=== PATIENT | male | born 1965 | race Caucasian/White ===

== ENCOUNTER 2018-12-21 23:22 | Emergency (ER) | payer SELFPAY ==
[2018-12-21] MEDS ORDERED: ceFAZolin 2 GM in Premix Bag 1 BAG IV ONE (23:23)
[2018-12-21] MEDS ORDERED: Sodium Chloride 0.9% 1,000 ML IV ONE (23:23)
[2018-12-21] MEDS ORDERED: Diphtheria,Pertussis(Acell),Tetanus Vaccine 0.5 ML Syringe IM ONE (23:23)
[2018-12-21] MEDS ORDERED: Sodium Chloride 0.9% 2.5 ML Syringe FLUSH PRN (23:24)
[2018-12-21] MEDS ORDERED: Sodium Chloride 0.9% 10 ML Syringe FLUSH PRN (23:24)
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
[2018-12-21 23:56] LABS: CHLORIDE,CL 98 mmol/L (98-107); SODIUM,NA 131 mmol/L (136-148)
[2018-12-22] MEDS ORDERED: Iopamidol 755 MG/ML 500 ML Multipack Bottle IVPUSH STA
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
[2018-12-22] MEDS ORDERED: Bacitracin Oint 1 GM U/D Packet TOP ONE (00:45)
== END 2018-12-22 01:10 | disposition home or self-care (01) ==
LOC: EDBD 23:22 → MW.ED 23:22
DX: S31.823A Puncture wound without foreign body of left buttock, initial encounter (principal); Z23 Encounter for immunization; W34.00XA Accidental discharge from unspecified firearms or gun, initial encounter
CPT/HCPCS: 36415; 71045; 72170; 74018; 74177; 80053; 81003; 85025; 85610; 90471; 90715; 93005; 96361; 96365; 99291; G0390; J0690; J7040; Q9967; 99285

== ENCOUNTER 2020-11-25 13:51 | Observation (INO) | payer MEDICAID ==
[2020-11-25] MEDS ORDERED: Sodium Chloride 0.9% 1,000 ML IV SCH (14:30)
[2020-11-25] MEDS ORDERED: Piperacillin/Tazobactam 3.375 GM in Sodium Chloride 0.9% 50 ML IV ONE (14:40)
[2020-11-25] MEDS ORDERED: Vancomycin 1.5 GM in Sodium Chloride 0.9% 500 ML IV SCH (14:45)
[2020-11-25 15:35] LABS: BLOOD UREA NITROGEN,BUN 15 mg/dL (7.0-18.0); CARBON DIOXIDE,CO2 25.1 mmol/L (21.0-32.0); CHLORIDE,CL 103 mmol/L (98-107); GLUCOSE RANDOM 220 mg/dL (74-106); POTASSIUM,K 4.1 mmol/L (3.5-5.1); SODIUM,NA 138 mmol/L (136-148)
--- NOTE | 2020-11-25 15:47 | EDM.PDOC ---
ED HPI GENERAL MEDICAL PROBLEM - General Chief Complaint: Lower Extremity Injury/Pain Stated Complaint: INFECTION IN RIGHT FOOT Time Seen by Provider: 11/25/20 14:05 Source of Information: Reports: Patient History Limitations: Reports: No Limitations - History of Present Illness INITIAL COMMENTS - FREE TEXT/NARRATIVE: HISTORY AND PHYSICAL: History of present illness: Patient is a 55-year-old male presents to the emergency room today with concern of right foot infection over 3 days. 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 Patient states that he began noticing his right foot was in affected 2 to 3 days ago. Patient states that he is unable to assess his foot as he is unable to get it to a level where he can fully analyze it. Patient states that he has not been taking insulin for 1 to 2 months as he has not had a financial/social situation to be able to afford it has been in and out of nursing home according to patient. As he had to have his prior left lower extremity amputated as he did not control infection and had this done at [facility] in [place]. Patient states that they had tried to control the infection with IV antibiotics but after 6 weeks, they decided to amputate his left lower extremity. Patient denies fever, chills, chest pain, shortness of breath, or cough. Denies headache, neck stiff ness, change in vision, syncope, or near syncope. Denies nausea, vomiting, abdominal pain, diarrhea, constipation, or dysuria. Has not noted any blood in urine or stool. Patient has been eating and drinking appropriately. Review of systems: As per history of present illness and below otherwise all systems reviewed and negative. Past medical history: As per history of present illness and as reviewed below otherwise noncontributory. Surgical history: As per history of present illness and as reviewed below otherwise noncontributory. Social history: See social history for further information Family history: As per history of present illness and as reviewed below otherwise noncontributory. Physical exam: General: Patient is alert, oriented, and in no acute distress. Patient laying comfortably on exam table. Vitals stable and reviewed by me. HEENT: Atraumatic, normocephalic, pupils equal and reactive bilaterally, negative for conjunctival pallor or scleral icterus, mucous membranes moist, TMs normal bilaterally, throat clear, neck supple, nontender, trachea midline. No drooling or trismus noted. No meningeal signs. No hot potato voice noted. Lungs: Clear to auscultation, breath sounds equal bilaterally, chest nontender. Heart: S1S2, regular rate and rhythm without overt murmur Abdomen: Soft, nondistended, nontender. Negative for masses or hepatosplenomegaly. Negative for costovertebral tenderness. Pelvis: Stable nontender. Genitourinary: Deferred. Rectal: Deferred. Skin: Intact, warm, dry. No lesions or rashes noted. Extremities: Patient's right foot has a 4 cm x 4 cm circular fleshy area of the lateral ball of his foot with surrounding edema and draining serosanguineous fluid. Patient has poor hygiene of the right foot with various crusting and matted hair stuck to the fleshy area and in between patient's digits. The top patient's right lower extremity has the top layer of skin that is peeling with erythema underlying this. Patient's fourth digit appears to have had prior trauma with the skin peeling and underlying erythema. Patient's entire foot to the ankle is cellulitic on the right. DP/PT intact via doppler of RLE. LLE below the knee amputation. Otherwise, atraumatic, negative for cords or calf pain. Neurovascular unremarkable. Neuro: Awake, alert, oriented. Cranial nerves II through XII unremarkable. Cerebellum unremarkable. Motor and sensory unremarkable throughout. Exam nonfocal. Notes: Bedside glucose 217 I did call and speak to the hospitalist on-call, Dr. Tapia, and thoroughly discussed patient's case. Will admit to observation. Voices understanding and is agreeable to plan of care. Denies any further questions or concerns at this time. Diagnostics: CBC, CMP, Wound culture, blood culture x 2, lactate, Foot CT w cont Therapeutics: NS, Vancomycin, Zosyn Impression: Cellulitis, right lower extremity Medication noncompliance Poorly controlled diabetes Plan: Admit to observation to Dr. Tapia Definitive disposition and diagnosis as appropriate pending reevaluation and review of above. right foot Pain Score (Numeric/FACES): 3 - Related Data Allergies Allergy/AdvReac Type Severity Reaction Status Date / Time No Known Allergies Allergy Verified 11/26/20 06:48 Home Meds: Home Meds . [Unable to Verify Home Med List] 11/25/20 [History] Past Medical History Musculoskeletal History: Reports: Amputation, Other (See Below) Other Musculoskeletal History: left foot amputation Psychiatric History: Reports: Addiction Endocrine/Metabolic History: Reports: Other (See Below) Other Endocrine/Metabolic History: pt. unsure if he is type I or Type II diabetic. Social & Family History - Family History Family Medical History: No Pertinent Family History - Caffeine Use Caffeine Use: Reports: None - Recreational Drug Use Recreational Drug Use: Yes Drug Use in Last 12 Months: Yes Recreational Drug Type: Reports: Methamphetamine Recreational Drug Use Frequency: Not Used In Over 3 Months Review of Systems - Review of Systems Review Of Systems: Comprehensive ROS is negative, except as noted in HPI. ED EXAM, GENERAL - Physical Exam Exam: See Below (see dictation) Course - Vital Signs Last Recorded V/S: Last Vital Signs Temp 98 F 11/26/20 15:54 Pulse 67 11/26/20 15:54 Resp 16 11/26/20 15:54 BP 119/63 11/26/20 15:54 Pulse Ox 96 11/26/20 18:01 - Orders/Labs/Meds Orders: Active Orders 24 hr Category Date Time Status Oxygen Therapy [RC] PRN Care 11/25/20 18:01 Active Up With Assistance [RC] ASDIRECTED Care 11/25/20 18:01 Active VTE/DVT Education [RC] PER UNIT ROUTINE Care 11/25/20 18:01 Active Vital Signs [RC] Q4H Care 11/25/20 18:01 Active Consult to Wound Care Services [CONS] Stat Cons 11/25/20 18:00 Active Acetaminophen [TylenoL] Med 11/25/20 18:01 Active 650 mg PO Q4H PRN Enoxaparin [Lovenox] Med 11/25/20 18:15 Active 40 mg SUBCUT Q24H Ondansetron [Zofran] Med 11/25/20 18:01 Active 4 mg IVPUSH Q4H PRN Pantoprazole [ProTONIX] Med 11/25/20 18:15 Active 40 mg PO DAILY Pharmacy to Dose - Vancomycin Med 11/25/20 18:00 Active 1 dose .XX ASDIRECTED Resuscitation Status Routine Resus Stat 11/25/20 18:01 Ordered Medication Orders Acetaminophen (Tylenol) 650 mg PO Q4H PRN PRN Reason: Pain (Mild 1-3)/fever Dextrose/Water (Dextrose 50% In Water) 50 ml IV ASDIRECTED PRN PRN Reason: Hypoglycemia Enoxaparin Sodium (Lovenox) 40 mg SUBCUT Q24H [facility] Last Admin: 11/26/20 18:25 Dose: 40 mg Documented by: Admin: 11/25/20 18:33 Dose: 40 mg Documented by: KWADWO Glucagon (Glucagen) 1 mg IM ASDIRECTED PRN PRN Reason: Hypoglycemia Sodium Chloride (Normal Saline) 1,000 mls @ 999 mls/hr IV ASDIRECTED [facility] Last Admin: 11/25/20 14:31 Dose: 999 mls/hr Documented by: KWADWO Vancomycin HCl 1.25 gm/ Sodium (Chloride) 250 mls @ 166.667 mls/hr IV Q8H [facility] Last Admin: 11/26/20 15:41 Dose: 166.667 mls/hr Documented by: Infusion: 11/26/20 09:52 Dose: 166.667 mls/hr Documented by: Admin: 11/26/20 08:22 Dose: 166.667 mls/hr Documented by: Infusion: 11/26/20 01:50 Dose: 166.667 mls/hr Documented by: Admin: 11/26/20 00:20 Dose: 166.667 mls/hr Documented by: NRIANJAN Piperacillin Sod/Tazobactam (Sod 3.375 gm/ Sodium Chloride) 50 mls @ 100 mls/hr IV Q6H [facility] Last Admin: 11/26/20 13:49 Dose: 100 mls/hr Documented by: Infusion: 11/26/20 08:08 Dose: 100 mls/hr Documented by: Admin: 11/26/20 07:38 Dose: 100 mls/hr Documented by: Infusion: 11/26/20 02:44 Dose: 100 mls/hr Documented by: Admin: 11/26/20 02:14 Dose: 100 mls/hr Documented by: Infusion: 11/25/20 20:48 Dose: 100 mls/hr Documented by: Admin: 11/25/20 20:18 Dose: 100 mls/hr Documented by: NIRANJAN Insulin Aspart (Novolog) 0 unit SUBCUT TIDAC [facility]; Protocol Last Admin: 11/26/20 18:25 Dose: Not Given Documented by: Admin: 11/26/20 13:02 Dose: 1 unit Documented by: Admin: 11/26/20 07:37 Dose: Not Given Documented by: STEFF Insulin Detemir (Levemir) 10 unit SUBCUT BEDTIME [facility] Last Admin: 11/25/20 20:33 Dose: 10 unit Documented by: NIRANJAN Ondansetron HCl (Zofran) 4 mg IVPUSH Q4H PRN PRN Reason: Nausea Pantoprazole Sodium (Protonix) 40 mg PO DAILY [facility] Last Admin: 11/26/20 08:02 Dose: 40 mg Documented by: Admin: 11/25/20 18:34 Dose: 40 mg Documented by: KWADWO Vancomycin HCl (Pharmacy To Dose - Vancomycin) 1 dose .XX ASDIRECTED [facility] Labs: Laboratory Tests 11/25/20 11/25/20 11/25/20 Range/Units 14:25 14:42 14:42 WBC 9.82 (4.0-11.0) K/uL RBC 4.19 L (4.50-5.90) M/uL Hgb 11.9 L (13.0-17.0) g/dL Hct 36.6 L (38.0-50.0) % MCV 87.4 (80.0-98.0) fL MCH 28.4 (27.0-32.0) pg MCHC 32.5 (31.0-37.0) g/dL RDW Std Deviation 46.0 (28.0-62.0) fl RDW Coeff of Dinesh 15 (11.0-15.0) % Plt Count 395 (150-400) K/uL MPV 9.80 (7.40-12.00) fL Neut % (Auto) 71.2 (48.0-80.0) % Lymph % (Auto) 17.6 (16.0-40.0) % Citrus % (Auto) 7.6 (0.0-15.0) % Eos % (Auto) 3.2 (0.0-7.0) % Baso % (Auto) 0.4 (0.0-1.5) % Neut # (Auto) 7.0 H (1.4-5.7) K/uL Lymph # (Auto) 1.7 (0.6-2.4) K/uL Citrus # (Auto) 0.8 (0.0-0.8) K/uL Eos # (Auto) 0.3 (0.0-0.7) K/uL Baso # (Auto) 0.0 (0.0-0.1) K/uL Nucleated RBC % 0.0 /100WBC Nucleated RBCs # 0 K/uL ESR (0-19) mm/hr Lactate (0.20-2.00) mmol/L Sodium 138 (136-148) mmol/L Potassium 4.1 (3.5-5.1) mmol/L Chloride 103 (98-107) mmol/L Carbon Dioxide 25.1 (21.0-32.0) mmol/L BUN 15 (7.0-18.0) mg/dL Creatinine 1.0 (0.8-1.3) mg/dL Est Cr Clr Drug Dosing 88.90 mL/min Estimated GFR (MDRD) > 60.0 ml/min Glucose 220 H (74-106) mg/dL POC Glucose 217 H (60-110) mg/dL Hemoglobin A1c (4.5 - 6.2) % Calcium 8.2 L (8.5-10.1) mg/dL Total Bilirubin 0.2 (0.2-1.0) mg/dL AST 9 L (15-37) IU/L ALT 22 (14-63) IU/L Alkaline Phosphatase 83 (46-116) U/L C-Reactive Protein (0.00-0.90) mg/dL Total Protein 7.8 (6.4-8.2) g/dL Albumin 2.5 L (3.4-5.0) g/dL Globulin 5.3 H (2.6-4.0) g/dL Albumin/Globulin Ratio 0.5 L (0.9-1.6) Influenza Type A RNA (NEGATIVE) Influenza Type B RNA (NEGATIVE) SARS-CoV-2 RNA (SKYLAR) (NEGATIVE) 11/25/20 11/25/20 11/25/20 Range/Units 14:42 14:42 14:42 WBC (4.0-11.0) K/uL RBC (4.50-5.90) M/uL Hgb (13.0-17.0) g/dL Hct (38.0-50.0) % MCV (80.0-98.0) fL MCH (27.0-32.0) pg MCHC (31.0-37.0) g/dL RDW Std Deviation (28.0-62.0) fl RDW Coeff of Dinesh (11.0-15.0) % Plt Count (150-400) K/uL MPV (7.40-12.00) fL Neut % (Auto) (48.0-80.0) % Lymph % (Auto) (16.0-40.0) % Citrus % (Auto) (0.0-15.0) % Eos % (Auto) (0.0-7.0) % Baso % (Auto) (0.0-1.5) % Neut # (Auto) (1.4-5.7) K/uL Lymph # (Auto) (0.6-2.4) K/uL Citrus # (Auto) (0.0-0.8) K/uL Eos # (Auto) (0.0-0.7) K/uL Baso # (Auto) (0.0-0.1) K/uL Nucleated RBC % /100WBC Nucleated RBCs # K/uL ESR 26 H (0-19) mm/hr Lactate 0.9 (0.20-2.00) mmol/L Sodium (136-148) mmol/L Potassium (3.5-5.1) mmol/L Chloride (98-107) mmol/L Carbon Dioxide (21.0-32.0) mmol/L BUN (7.0-18.0) mg/dL Creatinine (0.8-1.3) mg/dL Est Cr Clr Drug Dosing mL/min Estimated GFR (MDRD) ml/min Glucose (74-106) mg/dL POC Glucose (60-110) mg/dL Hemoglobin A1c (4.5 - 6.2) % Calcium (8.5-10.1) mg/dL Total Bilirubin (0.2-1.0) mg/dL AST (15-37) IU/L ALT (14-63) IU/L Alkaline Phosphatase (46-116) U/L C-Reactive Protein 11.80 H (0.00-0.90) mg/dL Total Protein (6.4-8.2) g/dL Albumin (3.4-5.0) g/dL Globulin (2.6-4.0) g/dL Albumin/Globulin Ratio (0.9-1.6) Influenza Type A RNA (NEGATIVE) Influenza Type B RNA (NEGATIVE) SARS-CoV-2 RNA (SKYLAR) (NEGATIVE) 11/25/20 11/25/20 Range/Units 14:42 17:02 WBC (4.0-11.0) K/uL RBC (4.50-5.90) M/uL Hgb (13.0-17.0) g/dL Hct (38.0-50.0) % MCV (80.0-98.0) fL MCH (27.0-32.0) pg MCHC (31.0-37.0) g/dL RDW Std Deviation (28.0-62.0) fl RDW Coeff of Dinesh (11.0-15.0) % Plt Count (150-400) K/uL MPV (7.40-12.00) fL Neut % (Auto) (48.0-80.0) % Lymph % (Auto) (16.0-40.0) % Citrus % (Auto) (0.0-15.0) % Eos % (Auto) (0.0-7.0) % Baso % (Auto) (0.0-1.5) % Neut # (Auto) (1.4-5.7) K/uL Lymph # (Auto) (0.6-2.4) K/uL Citrus # (Auto) (0.0-0.8) K/uL Eos # (Auto) (0.0-0.7) K/uL Baso # (Auto) (0.0-0.1) K/uL Nucleated RBC % /100WBC Nucleated RBCs # K/uL ESR (0-19) mm/hr Lactate (0.20-2.00) mmol/L Sodium (136-148) mmol/L Potassium (3.5-5.1) mmol/L Chloride (98-107) mmol/L Carbon Dioxide (21.0-32.0) mmol/L BUN (7.0-18.0) mg/dL Creatinine (0.8-1.3) mg/dL Est Cr Clr Drug Dosing mL/min Estimated GFR (MDRD) ml/min Glucose (74-106) mg/dL POC Glucose (60-110) mg/dL Hemoglobin A1c 7.6 H (4.5 - 6.2) % Calcium (8.5-10.1) mg/dL Total Bilirubin (0.2-1.0) mg/dL AST (15-37) IU/L ALT (14-63) IU/L Alkaline Phosphatase (46-116) U/L C-Reactive Protein (0.00-0.90) mg/dL Total Protein (6.4-8.2) g/dL Albumin (3.4-5.0) g/dL Globulin (2.6-4.0) g/dL Albumin/Globulin Ratio (0.9-1.6) Influenza Type A RNA NEGATIVE (NEGATIVE) Influenza Type B RNA NEGATIVE (NEGATIVE) SARS-CoV-2 RNA (SKYLAR) NEGATIVE (NEGATIVE) Meds: Medications Generic Name Dose Route Start Last Admin Trade Name Freq PRN Reason Stop Dose Admin Acetaminophen 650 mg 11/25/20 18:01 Tylenol PO Q4H PRN Pain (Mild 1-3)/fever Dextrose/Water 50 ml 11/25/20 18:03 Dextrose 50% In Water IV ASDIRECTED PRN Hypoglycemia Enoxaparin Sodium 40 mg 11/25/20 18:15 11/26/20 18:25 Lovenox SUBCUT 40 mg Q24H MOUNA Administration Glucagon 1 mg 11/25/20 18:03 Glucagen IM ASDIRECTED PRN Hypoglycemia Sodium Chloride 1,000 mls @ 999 mls/hr 11/25/20 14:30 11/25/20 14:31 Normal Saline IV 999 mls/hr ASDIRECTED MOUNA Administration Vancomycin HCl 1.25 gm/ Sodium 250 mls @ 166.667 mls/hr 11/26/20 00:00 11/26/20 15:41 Chloride IV 166.667 mls/hr Q8H [facility]OUNA Administration Piperacillin Sod/Tazobactam 50 mls @ 100 mls/hr 11/25/20 20:00 11/26/20 13:49 Sod 3.375 gm/ Sodium Chloride IV 100 mls/hr Q6H [facility] Administration Insulin Aspart 0 unit 11/26/20 07:30 11/26/20 18:25 Novolog SUBCUT Not Given TIDAC [facility] Protocol Insulin Detemir 10 unit 11/25/20 21:00 11/25/20 20:33 Levemir SUBCUT 10 unit BEDTIME [facility] Administration Ondansetron HCl 4 mg 11/25/20 18:01 Zofran IVPUSH Q4H PRN Nausea Pantoprazole Sodium 40 mg 11/25/20 18:15 11/26/20 08:02 Protonix PO 40 mg DAILY MOUNA Administration Vancomycin HCl 1 dose 11/25/20 18:00 Pharmacy To Dose - Vancomycin .XX ASDIRECTED [facility] Discontinued Medications Generic Name Dose Route Start Last Admin Trade Name Freq PRN Reason Stop Dose Admin Vancomycin HCl 1.5 gm/ Sodium 500 mls @ 333 mls/hr 11/25/20 14:45 11/25/20 16:06 Chloride IV 333 mls/hr Q24H [facility]OUNA Administration Piperacillin Sod/Tazobactam 50 mls @ 100 mls/hr 11/25/20 14:40 11/25/20 14:51 Sod 3.375 gm/ Sodium Chloride IV 11/25/20 15:09 100 mls/hr ONETIME ONE Administration Piperacillin Sod/Tazobactam 50 mls @ 100 mls/hr 11/25/20 18:00 11/25/20 21:25 Sod 3.375 gm/ Sodium Chloride IV Not Given Q6H [facility] Iopamidol 100 ml 11/25/20 16:01 11/25/20 16:02 Isovue Multipack-370 (76%) IVPUSH 11/25/20 16:02 100 ml ONETIME ONE Administration Departure - Departure Time of Disposition: 19:02 Disposition: Refer to Observation Clinical Impression: Non compliance w medication regimen, Poorly controlled diabetes mellitus Cellulitis Qualifiers: Site of cellulitis: extremity Site of cellulitis of extremity: lower extremity Laterality: right Qualified Code(s): L03.115 - Cellulitis of right lower limb - Discharge Information Sepsis Event Note (ED) - Evaluation Sepsis Screening Result: No Definite Risk
[2020-11-25] MEDS ORDERED: Iopamidol 755 MG/ML 500 ML Multipack Bottle IVPUSH ONE (16:01)
--- NOTE | 2020-11-25 16:26 | CT ---
Indication: Infection of right foot. Diabetic. Technique: CT right foot with 100 cc Isovue 370 IV contrast. Comparison: None. Findings: Bone alignment is normal. No fracture or suspicious bone lesion. No sign of osteomyelitis. Joint spaces are also unremarkable. There are soft tissue ulcers in the plantar surface of the foot. The most prominent ulcer is adjacent to the distal head of the 5th metatarsal. Diffuse severe soft tissue edema present. Vasculature appears patent with blood flow demonstrated throughout the foot. Impression: Diffuse severe swelling with multiple soft tissue ulcers in the plantar surface of the foot. No abscess or osteomyelitis. Please note that all CT scans at this facility use dose modulation, iterative reconstruction, and/or weight-based dosing when appropriate to reduce radiation dose to as low as reasonably achievable. Dictated by Brett Andino MD @ Nov 25 2020 4:15PM Signed by Dr. Brett Andino @ Nov 25 2020 4:24PM
--- NOTE | 2020-11-25 17:20 | PCM.HP.2 ---
H&P History of Present Illness - General Date of Service: 11/25/20 Admit Problem/Dx: Admission Diagnosis/Problem Admission Diagnosis/Problem Cellulitis Source of Information: Patient History Limitations: Reports: No Limitations - History of Present Illness Initial Comments - Free Text/Narative: 55-year-old male presents complaining of right foot infection. He has a PMH of u ncontrolled DM type II, left BKA and substance abuse. He reports that he noticed his right foot becoming more swollen and red after bumping it against something approximately 3-4 days ago. He reports minimal pain. He noticed some yellow- colored drainage from the bottom of his right foot for the past few days as well. He has been walking on it a lot. He had a left BKA done approximately 4 months ago in [place]. He denies having any fevers, chills, sore throat, cough, SOB, chest pain, abdominal pain, nausea, vomiting, diarrhea, blood in stool or blood in his urine. In the ER, POC glucose 220, lactate normal and CBC unremarkable. CT of right foot showed no evidence of osteomyelitis, diffuse severe swelling with multiple soft tissue ulcers in the plantar surface of the foot. Patient given IV NS 1 L bolus, IV vanc and zosyn. He was admitted for further evaluation and treatment. right foot Pain Score (Numeric/FACES): 3 - Related Data Allergies/Adverse Reactions: Allergies Allergy/AdvReac Type Severity Reaction Status Date / Time No Known Allergies Allergy Verified 11/25/20 14:19 Home Medications: Home Meds . [Unable to Verify Home Med List] 11/25/20 [History] Past Medical History Musculoskeletal History: Reports: Amputation, Other (See Below) Other Musculoskeletal History: left foot amputation Psychiatric History: Reports: Addiction Endocrine/Metabolic History: Reports: Other (See Below) Other Endocrine/Metabolic History: pt. unsure if he is type I or Type II diabetic. Social & Family History - Family History Family Medical History: No Pertinent Family History - Caffeine Use Caffeine Use: Reports: None - Recreational Drug Use Recreational Drug Use: Yes Drug Use in Last 12 Months: Yes Recreational Drug Type: Reports: Methamphetamine Recreational Drug Use Frequency: Not Used In Over 3 Months H&P Review of Systems - Review of Systems: Review Of Systems: Comprehensive ROS is negative, except as noted in HPI. Exam - Exam Exam: See Below - Vital Signs Vital Signs: Last Vital Signs Temp 36.5 C 11/25/20 14:16 Pulse 88 11/25/20 14:16 Resp 18 11/25/20 14:16 BP 167/90 H 11/25/20 14:16 Pulse Ox 98 11/25/20 14:16 Weight: 81.193 kg - Exam General: Alert, Oriented, Cooperative, Other (NAD) HEENT: Conjunctiva Clear, EOMI, Hearing Intact, Pupils Equal, Pupils Reactive Neck: Supple, Trachea Midline Lungs: Clear to Auscultation, Normal Respiratory Effort Cardiovascular: Regular Rate, Regular Rhythm GI/Abdominal Exam: Normal Bowel Sounds, Soft, Non-Tender, No Distention Extremities: Other (RLE: 3 cm x 3 cm ulceration on plantar surface of right foot, draining scant amount of serosanguinous fluid with surrounding erythema and edmea. There is a shallow skin abrasion approximately 2 cm x 1 cm on dorsal surface of foot near 4th and 5th digits. 1+ pitting edema and erythema from foot extending proximally to distal leg level. ) Peripheral Pulses: 1+: Posterior Tibial (L), Posterior Tibial (R) Neurological: Cranial Nerves Intact, Strength Equal Bilateral, Normal Speech, Normal Tone Neuro Extensive - Mental Status: Alert, Oriented x3, Normal Mood/Affect Psychiatric: Alert, Normal Affect, Normal Mood - Patient Data Lab Results Last 24 hrs: Laboratory Results - last 24 hr 11/25/20 11/25/20 11/25/20 Range/Units 14:25 14:42 14:42 WBC 9.82 (4.0-11.0) K/uL RBC 4.19 L (4.50-5.90) M/uL Hgb 11.9 L (13.0-17.0) g/dL Hct 36.6 L (38.0-50.0) % MCV 87.4 (80.0-98.0) fL MCH 28.4 (27.0-32.0) pg MCHC 32.5 (31.0-37.0) g/dL RDW Std Deviation 46.0 (28.0-62.0) fl RDW Coeff of Dinesh 15 (11.0-15.0) % Plt Count 395 (150-400) K/uL MPV 9.80 (7.40-12.00) fL Neut % (Auto) 71.2 (48.0-80.0) % Lymph % (Auto) 17.6 (16.0-40.0) % [place] % (Auto) 7.6 (0.0-15.0) % Eos % (Auto) 3.2 (0.0-7.0) % Baso % (Auto) 0.4 (0.0-1.5) % Neut # (Auto) 7.0 H (1.4-5.7) K/uL Lymph # (Auto) 1.7 (0.6-2.4) K/uL [place] # (Auto) 0.8 (0.0-0.8) K/uL Eos # (Auto) 0.3 (0.0-0.7) K/uL Baso # (Auto) 0.0 (0.0-0.1) K/uL Nucleated RBC % 0.0 /100WBC Nucleated RBCs # 0 K/uL Lactate (0.20-2.00) mmol/L Sodium 138 (136-148) mmol/L Potassium 4.1 (3.5-5.1) mmol/L Chloride 103 (98-107) mmol/L Carbon Dioxide 25.1 (21.0-32.0) mmol/L BUN 15 (7.0-18.0) mg/dL Creatinine 1.0 (0.8-1.3) mg/dL Est Cr Clr Drug Dosing 88.90 mL/min Estimated GFR (MDRD) > 60.0 ml/min Glucose 220 H (74-106) mg/dL POC Glucose 217 H (60-110) mg/dL Calcium 8.2 L (8.5-10.1) mg/dL Total Bilirubin 0.2 (0.2-1.0) mg/dL AST 9 L (15-37) IU/L ALT 22 (14-63) IU/L Alkaline Phosphatase 83 (46-116) U/L Total Protein 7.8 (6.4-8.2) g/dL Albumin 2.5 L (3.4-5.0) g/dL Globulin 5.3 H (2.6-4.0) g/dL Albumin/Globulin Ratio 0.5 L (0.9-1.6) 11/25/20 Range/Units 14:42 WBC (4.0-11.0) K/uL RBC (4.50-5.90) M/uL Hgb (13.0-17.0) g/dL Hct (38.0-50.0) % MCV (80.0-98.0) fL MCH (27.0-32.0) pg MCHC (31.0-37.0) g/dL RDW Std Deviation (28.0-62.0) fl RDW Coeff of Dinesh (11.0-15.0) % Plt Count (150-400) K/uL MPV (7.40-12.00) fL Neut % (Auto) (48.0-80.0) % Lymph % (Auto) (16.0-40.0) % [place] % (Auto) (0.0-15.0) % Eos % (Auto) (0.0-7.0) % Baso % (Auto) (0.0-1.5) % Neut # (Auto) (1.4-5.7) K/uL Lymph # (Auto) (0.6-2.4) K/uL [place] # (Auto) (0.0-0.8) K/uL Eos # (Auto) (0.0-0.7) K/uL Baso # (Auto) (0.0-0.1) K/uL Nucleated RBC % /100WBC Nucleated RBCs # K/uL Lactate 0.9 (0.20-2.00) mmol/L Sodium (136-148) mmol/L Potassium (3.5-5.1) mmol/L Chloride (98-107) mmol/L Carbon Dioxide (21.0-32.0) mmol/L BUN (7.0-18.0) mg/dL Creatinine (0.8-1.3) mg/dL Est Cr Clr Drug Dosing mL/min Estimated GFR (MDRD) ml/min Glucose (74-106) mg/dL POC Glucose (60-110) mg/dL Calcium (8.5-10.1) mg/dL Total Bilirubin (0.2-1.0) mg/dL AST (15-37) IU/L ALT (14-63) IU/L Alkaline Phosphatase (46-116) U/L Total Protein (6.4-8.2) g/dL Albumin (3.4-5.0) g/dL Globulin (2.6-4.0) g/dL Albumin/Globulin Ratio (0.9-1.6) Result Diagrams: 11/25/20 14:42 11/25/20 14:42 [facility]argas Results Last 24 hrs: Microbiology 11/25/20 14:42 Anaerobic Blood Culture - Final Blood - Venous Sepsis Event Note - Evaluation Sepsis Screening Result: No Definite Risk - Focused Exam Vital Signs: Vital Signs Temp Pulse Resp BP Pulse Ox 11/25/20 14:16 36.5 C 88 18 167/90 H 98 - Problem List (1) Diabetic foot ulcer SNOMED Code(s): 833536825 ICD Code: E11.621 - TYPE 2 DIABETES MELLITUS WITH FOOT ULCER; L97.509 - NON- PRESSURE CHRONIC ULCER OTH PRT UNSP FOOT W UNSP SEVERITY Status: Acute Current Visit: Yes Problem List Initiated/Reviewed/Updated: Yes Orders Last 24hrs: Active Orders 24 hr Category Date Time Status Admission Status [Patient Status] [ADT] Stat ADT 11/25/20 16:51 Active COVID-19/FLU A+B [MOLEC] Stat Lab 11/25/20 17:02 Received CULTURE BLOOD [BC] Stat Lab 11/25/20 14:42 Results CULTURE BLOOD [BC] Stat Lab 11/25/20 15:00 Received CULTURE WOUND [RM] Stat Lab 11/25/20 14:23 Received Sodium Chloride 0.9% [Normal Saline] 1,000 ml Med 11/25/20 14:30 Active IV ASDIRECTED Vancomycin 1.5 gm Med 11/25/20 14:45 Active Sodium Chloride 0.9% [Normal Saline] 500 ml IV Q24H Blood Culture x2 Reflex Set [OM.PC] Stat Oth 11/25/20 14:37 Ordered Medication Orders Sodium Chloride (Normal Saline) 1,000 mls @ 999 mls/hr IV ASDIRECTED [facility] Last Admin: 11/25/20 14:31 Dose: 999 mls/hr Documented by: KWADWO Vancomycin HCl 1.5 gm/ Sodium (Chloride) 500 mls @ 333 mls/hr IV Q24H [facility] Last Admin: 11/25/20 16:06 Dose: 333 mls/hr Documented by: KWADWO Assessment/Plan Comment:: Assessment and Plan: 1. Infected diabetic foot ulcers of RLE: - Admit to med/surg. Will treat with IV vancomycin and zosyn. Obtain wound and blood cultures. Will check ESR and CRP. Consult wound care. - CT of right foot showed diffuse severe swelling with multiple soft tissue ulcers in the plantar surface of the foot and no evidence of osteomyelitis. 2. Diabetes mellitus type 2: - Check HgbA1c. Start ADA diet, SSI and accuchecks TIDAC. Levemir 10 units at bedtime. 3. DVT prophylaxis: - Lovenox 40 mg subcut qd.
[2020-11-25 17:47] LABS: CORONAVIRUS COVID-19 NAA NEGATIVE (NEGATIVE); INFLUENZA A NAA NEGATIVE (NEGATIVE); INFLUENZA B NAA NEGATIVE (NEGATIVE)
[2020-11-25] MEDS ORDERED: Piperacillin/Tazobactam 3.375 GM in Sodium Chloride 0.9% 50 ML IV SCH (18:00)
[2020-11-25] MEDS ORDERED: Ondansetron 4 MG/2 ML SDV IVPUSH PRN (18:01)
[2020-11-25] MEDS ORDERED: Acetaminophen 325 MG Tab PO PRN (18:01)
[2020-11-25] MEDS ORDERED: Glucagon,Human Recombinant 1 MG Vial IM PRN (18:03)
[2020-11-25] MEDS ORDERED: 50% Dextrose in Water 50 ML Syringe IV PRN (18:03)
[2020-11-25] MEDS: Enoxaparin 40 MG/0.4 ML Syringe SUBCUT SCH (18:33)
[2020-11-25] MEDS: Pantoprazole 40 MG Tab.CR PO SCH (18:34)
[2020-11-25 18:56] LABS: HEMOGLOBIN A1C 7.6 %
[2020-11-25] MEDS: Piperacillin/Tazobactam 3.375 GM in Sodium Chloride 0.9% 50 ML IV SCH (20:18)
[2020-11-25] MEDS: Insulin Detemir 100 Units/ML 3 ML Pen SUBCUT SCH (20:33)
[2020-11-26] MEDS: Piperacillin/Tazobactam 3.375 GM in Sodium Chloride 0.9% 50 ML IV SCH ×4 (02:14→19:59)
[2020-11-26 07:14] LABS: BLOOD UREA NITROGEN,BUN 11 mg/dL (7.0-18.0); CARBON DIOXIDE,CO2 25.4 mmol/L (21.0-32.0); CHLORIDE,CL 103 mmol/L (98-107); GLUCOSE RANDOM 117 mg/dL (74-106); POTASSIUM,K 3.9 mmol/L (3.5-5.1); SODIUM,NA 137 mmol/L (136-148)
[2020-11-26] MEDS: Insulin Aspart 100 Units/ML 3 ML Pen SUBCUT SCH ×3 (07:37→18:25)
[2020-11-26] MEDS: Pantoprazole 40 MG Tab.CR PO SCH (08:02)
--- NOTE | 2020-11-26 11:31 | PCM.PN ---
- General Info Date of Service: 11/26/20 Admission Dx/Problem (Free Text): Admission Diagnosis/Problem Admission Diagnosis/Problem Cellulitis Subjective Update: seen at bedside, no acute distress, Functional Status: Reports: Tolerating Diet - Review of Systems General: Denies: Fever, Weakness Pulmonary: Denies: Shortness of Breath, Pleuritic Chest Pain Cardiovascular: Denies: Chest Pain, Palpitations Gastrointestinal: Denies: Abdominal Pain, Constipation, Decreased Appetite Genitourinary: Denies: Dysuria, Frequency, Burning Musculoskeletal: Reports: Leg Pain, Foot Pain. Denies: Neck Pain, Shoulder Pain Skin: Denies: Cyanosis, Jaundice Neurological: Denies: Confusion, Dizziness - Patient Data Vitals - Most Recent: Last Vital Signs Temp 36.6 C 11/26/20 07:36 Pulse 70 11/26/20 07:36 Resp 18 11/26/20 07:36 BP 137/78 11/26/20 07:36 Pulse Ox 95 11/26/20 07:36 Weight - Most Recent: 89.902 kg I&O - Last 24 Hours: Intake & Output 11/25/20 11/26/20 11/26/20 22:59 06:59 14:59 Intake Total 1250 Output Total 650 Balance 600 Lab Results Last 24 Hours: Laboratory Results - last 24 hr 11/25/20 11/25/20 11/25/20 Range/Units 14:25 14:42 14:42 WBC 9.82 (4.0-11.0) K/uL RBC 4.19 L (4.50-5.90) M/uL Hgb 11.9 L (13.0-17.0) g/dL Hct 36.6 L (38.0-50.0) % MCV 87.4 (80.0-98.0) fL MCH 28.4 (27.0-32.0) pg MCHC 32.5 (31.0-37.0) g/dL RDW Std Deviation 46.0 (28.0-62.0) fl RDW Coeff of Dinesh 15 (11.0-15.0) % Plt Count 395 (150-400) K/uL MPV 9.80 (7.40-12.00) fL Neut % (Auto) 71.2 (48.0-80.0) % Lymph % (Auto) 17.6 (16.0-40.0) % [place] % (Auto) 7.6 (0.0-15.0) % Eos % (Auto) 3.2 (0.0-7.0) % Baso % (Auto) 0.4 (0.0-1.5) % Neut # (Auto) 7.0 H (1.4-5.7) K/uL Lymph # (Auto) 1.7 (0.6-2.4) K/uL [place] # (Auto) 0.8 (0.0-0.8) K/uL Eos # (Auto) 0.3 (0.0-0.7) K/uL Baso # (Auto) 0.0 (0.0-0.1) K/uL Nucleated RBC % 0.0 /100WBC Nucleated RBCs # 0 K/uL ESR (0-19) mm/hr Lactate (0.20-2.00) mmol/L Sodium 138 (136-148) mmol/L Potassium 4.1 (3.5-5.1) mmol/L Chloride 103 (98-107) mmol/L Carbon Dioxide 25.1 (21.0-32.0) mmol/L BUN 15 (7.0-18.0) mg/dL Creatinine 1.0 (0.8-1.3) mg/dL Est Cr Clr Drug Dosing 88.90 mL/min Estimated GFR (MDRD) > 60.0 ml/min Glucose 220 H (74-106) mg/dL POC Glucose 217 H (60-110) mg/dL Hemoglobin A1c (4.5 - 6.2) % Calcium 8.2 L (8.5-10.1) mg/dL Total Bilirubin 0.2 (0.2-1.0) mg/dL AST 9 L (15-37) IU/L ALT 22 (14-63) IU/L Alkaline Phosphatase 83 (46-116) U/L C-Reactive Protein (0.00-0.90) mg/dL Total Protein 7.8 (6.4-8.2) g/dL Albumin 2.5 L (3.4-5.0) g/dL Globulin 5.3 H (2.6-4.0) g/dL Albumin/Globulin Ratio 0.5 L (0.9-1.6) Influenza Type A RNA (NEGATIVE) Influenza Type B RNA (NEGATIVE) SARS-CoV-2 RNA (SKYLAR) (NEGATIVE) 11/25/20 11/25/20 11/25/20 Range/Units 14:42 14:42 14:42 WBC (4.0-11.0) K/uL RBC (4.50-5.90) M/uL Hgb (13.0-17.0) g/dL Hct (38.0-50.0) % MCV (80.0-98.0) fL MCH (27.0-32.0) pg MCHC (31.0-37.0) g/dL RDW Std Deviation (28.0-62.0) fl RDW Coeff of Dinesh (11.0-15.0) % Plt Count (150-400) K/uL MPV (7.40-12.00) fL Neut % (Auto) (48.0-80.0) % Lymph % (Auto) (16.0-40.0) % [place] % (Auto) (0.0-15.0) % Eos % (Auto) (0.0-7.0) % Baso % (Auto) (0.0-1.5) % Neut # (Auto) (1.4-5.7) K/uL Lymph # (Auto) (0.6-2.4) K/uL [place] # (Auto) (0.0-0.8) K/uL Eos # (Auto) (0.0-0.7) K/uL Baso # (Auto) (0.0-0.1) K/uL Nucleated RBC % /100WBC Nucleated RBCs # K/uL ESR 26 H (0-19) mm/hr Lactate 0.9 (0.20-2.00) mmol/L Sodium (136-148) mmol/L Potassium (3.5-5.1) mmol/L Chloride (98-107) mmol/L Carbon Dioxide (21.0-32.0) mmol/L BUN (7.0-18.0) mg/dL Creatinine (0.8-1.3) mg/dL Est Cr Clr Drug Dosing mL/min Estimated GFR (MDRD) ml/min Glucose (74-106) mg/dL POC Glucose (60-110) mg/dL Hemoglobin A1c (4.5 - 6.2) % Calcium (8.5-10.1) mg/dL Total Bilirubin (0.2-1.0) mg/dL AST (15-37) IU/L ALT (14-63) IU/L Alkaline Phosphatase (46-116) U/L C-Reactive Protein 11.80 H (0.00-0.90) mg/dL Total Protein (6.4-8.2) g/dL Albumin (3.4-5.0) g/dL Globulin (2.6-4.0) g/dL Albumin/Globulin Ratio (0.9-1.6) Influenza Type A RNA (NEGATIVE) Influenza Type B RNA (NEGATIVE) SARS-CoV-2 RNA (SK[place]AR) (NEGATIVE) 11/25/20 11/25/20 11/25/20 Range/Units 14:42 17:02 20:31 WBC (4.0-11.0) K/uL RBC (4.50-5.90) M/uL Hgb (13.0-17.0) g/dL Hct (38.0-50.0) % MCV (80.0-98.0) fL MCH (27.0-32.0) pg MCHC (31.0-37.0) g/dL RDW Std Deviation (28.0-62.0) fl RDW Coeff of Dinesh (11.0-15.0) % Plt Count (150-400) K/uL MPV (7.40-12.00) fL Neut % (Auto) (48.0-80.0) % Lymph % (Auto) (16.0-40.0) % [place] % (Auto) (0.0-15.0) % Eos % (Auto) (0.0-7.0) % Baso % (Auto) (0.0-1.5) % Neut # (Auto) (1.4-5.7) K/uL Lymph # (Auto) (0.6-2.4) K/uL [place] # (Auto) (0.0-0.8) K/uL Eos # (Auto) (0.0-0.7) K/uL Baso # (Auto) (0.0-0.1) K/uL Nucleated RBC % /100WBC Nucleated RBCs # K/uL ESR (0-19) mm/hr Lactate (0.20-2.00) mmol/L Sodium (136-148) mmol/L Potassium (3.5-5.1) mmol/L Chloride (98-107) mmol/L Carbon Dioxide (21.0-32.0) mmol/L BUN (7.0-18.0) mg/dL Creatinine (0.8-1.3) mg/dL Est Cr Clr Drug Dosing mL/min Estimated GFR (MDRD) ml/min Glucose (74-106) mg/dL POC Glucose 195 H (60-110) mg/dL Hemoglobin A1c 7.6 H (4.5 - 6.2) % Calcium (8.5-10.1) mg/dL Total Bilirubin (0.2-1.0) mg/dL AST (15-37) IU/L ALT (14-63) IU/L Alkaline Phosphatase (46-116) U/L C-Reactive Protein (0.00-0.90) mg/dL Total Protein (6.4-8.2) g/dL Albumin (3.4-5.0) g/dL Globulin (2.6-4.0) g/dL Albumin/Globulin Ratio (0.9-1.6) Influenza Type A RNA NEGATIVE (NEGATIVE) Influenza Type B RNA NEGATIVE (NEGATIVE) SARS-CoV-2 RNA (SKYLAR) NEGATIVE (NEGATIVE) 11/26/20 11/26/20 11/26/20 Range/Units 06:30 06:30 06:58 WBC 9.68 (4.0-11.0) K/uL RBC 3.95 L (4.50-5.90) M/uL Hgb 11.1 L (13.0-17.0) g/dL Hct 34.0 L (38.0-50.0) % MCV 86.1 (80.0-98.0) fL MCH 28.1 (27.0-32.0) pg MCHC 32.6 (31.0-37.0) g/dL RDW Std Deviation 45.4 (28.0-62.0) fl RDW Coeff of Dinesh 14 (11.0-15.0) % Plt Count 367 (150-400) K/uL MPV 9.30 (7.40-12.00) fL Neut % (Auto) 73.6 (48.0-80.0) % Lymph % (Auto) 13.5 L (16.0-40.0) % [place] % (Auto) 8.1 (0.0-15.0) % Eos % (Auto) 4.3 (0.0-7.0) % Baso % (Auto) 0.5 (0.0-1.5) % Neut # (Auto) 7.1 H (1.4-5.7) K/uL Lymph # (Auto) 1.3 (0.6-2.4) K/uL [place] # (Auto) 0.8 (0.0-0.8) K/uL Eos # (Auto) 0.4 (0.0-0.7) K/uL Baso # (Auto) 0.1 (0.0-0.1) K/uL Nucleated RBC % 0.0 /100WBC Nucleated RBCs # 0 K/uL ESR (0-19) mm/hr Lactate (0.20-2.00) mmol/L Sodium 137 (136-148) mmol/L Potassium 3.9 (3.5-5.1) mmol/L Chloride 103 (98-107) mmol/L Carbon Dioxide 25.4 (21.0-32.0) mmol/L BUN 11 (7.0-18.0) mg/dL Creatinine 1.0 (0.8-1.3) mg/dL Est Cr Clr Drug Dosing 88.90 mL/min Estimated GFR (MDRD) > 60.0 ml/min Glucose 117 H (74-106) mg/dL POC Glucose 113 H (60-110) mg/dL Hemoglobin A1c (4.5 - 6.2) % Calcium 8.2 L (8.5-10.1) mg/dL Total Bilirubin 0.3 (0.2-1.0) mg/dL AST 11 L (15-37) IU/L ALT 20 (14-63) IU/L Alkaline Phosphatase 70 (46-116) U/L C-Reactive Protein (0.00-0.90) mg/dL Total Protein 7.2 (6.4-8.2) g/dL Albumin 2.2 L (3.4-5.0) g/dL Globulin 5.0 H (2.6-4.0) g/dL Albumin/Globulin Ratio 0.4 L (0.9-1.6) Influenza Type A RNA (NEGATIVE) Influenza Type B RNA (NEGATIVE) SARS-CoV-2 RNA (SKYLAR) (NEGATIVE) [facility]as Results Last 24 Hours: Microbiology 11/25/20 14:42 Anaerobic Blood Culture - Final Blood - Venous Med Orders - Current: Current Medications Acetaminophen (Tylenol) 650 mg PO Q4H PRN PRN Reason: Pain (Mild 1-3)/fever Dextrose/Water (Dextrose 50% In Water) 50 ml IV ASDIRECTED PRN PRN Reason: Hypoglycemia Enoxaparin Sodium (Lovenox) 40 mg SUBCUT Q24H [facility] Last Admin: 11/25/20 18:33 Dose: 40 mg Documented by: Glucagon (Glucagen) 1 mg IM ASDIRECTED PRN PRN Reason: Hypoglycemia Sodium Chloride (Normal Saline) 1,000 mls @ 999 mls/hr IV ASDIRECTED [facility] Last Admin: 11/25/20 14:31 Dose: 999 mls/hr Documented by: Vancomycin HCl 1.25 gm/ Sodium (Chloride) 250 mls @ 166.667 mls/hr IV Q8H [facility] Last Admin: 11/26/20 08:22 Dose: 166.667 mls/hr Documented by: Piperacillin Sod/Tazobactam (Sod 3.375 gm/ Sodium Chloride) 50 mls @ 100 mls/hr IV Q6H [facility] Last Admin: 11/26/20 07:38 Dose: 100 mls/hr Documented by: Insulin Aspart (Novolog) 0 unit SUBCUT TIDAC [facility]; Protocol Last Admin: 11/26/20 07:37 Dose: Not Given Documented by: Insulin Detemir (Levemir) 10 unit SUBCUT BEDTIME [facility] Last Admin: 11/25/20 20:33 Dose: 10 unit Documented by: Ondansetron HCl (Zofran) 4 mg IVPUSH Q4H PRN PRN Reason: Nausea Pantoprazole Sodium (Protonix) 40 mg PO DAILY [facility] Last Admin: 11/26/20 08:02 Dose: 40 mg Documented by: Vancomycin HCl (Pharmacy To Dose - Vancomycin) 1 dose .XX ASDIRECTED [facility] Discontinued Medications Vancomycin HCl 1.5 gm/ Sodium (Chloride) 500 mls @ 333 mls/hr IV Q24H [facility] Last Admin: 11/25/20 16:06 Dose: 333 mls/hr Documented by: Piperacillin Sod/Tazobactam (Sod 3.375 gm/ Sodium Chloride) 50 mls @ 100 mls/hr IV ONETIME ONE Stop: 11/25/20 15:09 Last Admin: 11/25/20 14:51 Dose: 100 mls/hr Documented by: Piperacillin Sod/Tazobactam (Sod 3.375 gm/ Sodium Chloride) 50 mls @ 100 mls/hr IV Q6H [facility] Last Admin: 11/25/20 21:25 Dose: Not Given Documented by: Iopamidol (Isovue Multipack-370 (76%)) 100 ml IVPUSH ONETIME ONE Stop: 11/25/20 16:02 Last Admin: 11/25/20 16:02 Dose: 100 ml Documented by: - Exam General: Alert, Oriented Lungs: Clear to Auscultation, Normal Respiratory Effort Cardiovascular: Regular Rate, Regular Rhythm GI/Abdominal Exam: Normal Bowel Sounds, Soft, Non-Tender Extremities: Normal Range of Motion, Leg Pain, Redness, Other (3x3 cm ulcer with purulent drainage present in the plantar aspect of the right foot, ). No: Joint Swelling, Arm Pain Skin: Warm, Dry Wound/Incisions: Drainage Sepsis Event Note - Evaluation Sepsis Screening Result: No Definite Risk - Focused Exam Vital Signs: Vital Signs Temp Pulse Resp BP Pulse Ox 11/26/20 07:36 36.6 C 70 18 137/78 95 11/26/20 04:00 37.1 C 81 18 151/78 H 95 11/26/20 00:00 36.7 C 82 18 152/83 H 95 - Problem List & Annotations (1) Diabetes mellitus SNOMED Code(s): 56428619 Code(s): E11.9 - TYPE 2 DIABETES MELLITUS WITHOUT COMPLICATIONS Status: Acute Current Visit: Yes (2) Diabetic foot ulcer SNOMED Code(s): 363671482 Code(s): E11.621 - TYPE 2 DIABETES MELLITUS WITH FOOT ULCER; L97.509 - NON- PRESSURE CHRONIC ULCER OTH PRT UNSP FOOT W UNSP SEVERITY Status: Acute Current Visit: Yes (3) Hx of BKA SNOMED Code(s): 339725667, 755489041 Code(s): Z89.519 - ACQUIRED ABSENCE OF UNSPECIFIED LEG BELOW KNEE Status: Acute Current Visit: Yes - Problem List Review Problem List Initiated/Reviewed/Updated: Yes - Plan Plan:: Assessment and Plan: 1. Infected diabetic foot ulcers of RLE: - cont IV vancomycin and zosyn. Obtain wound and blood cultures. Consult wound care. - CT of right foot showed diffuse severe swelling with multiple soft tissue ulcers in the plantar surface of the foot and no evidence of osteomyelitis. 2. 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 Levemir 10 units at bedtime. 3. DVT prophylaxis: - Lovenox 40 mg subcut qd.
[2020-11-26] MEDS: Enoxaparin 40 MG/0.4 ML Syringe SUBCUT SCH (18:25)
[2020-11-26] MEDS: Insulin Detemir 100 Units/ML 3 ML Pen SUBCUT SCH (20:08)
[2020-11-27] MEDS: Piperacillin/Tazobactam 3.375 GM in Sodium Chloride 0.9% 50 ML IV SCH ×4 (01:36→20:25)
[2020-11-27 07:22] LABS: BLOOD UREA NITROGEN,BUN 11 mg/dL (7.0-18.0); CARBON DIOXIDE,CO2 27.6 mmol/L (21.0-32.0); CHLORIDE,CL 104 mmol/L (98-107); GLUCOSE RANDOM 136 mg/dL (74-106); SODIUM,NA 141 mmol/L (136-148)
--- NOTE | 2020-11-27 07:41 | PCM.PN ---
<Vince Carrasquillo - Last Filed: 11/27/20 12:06> - General Info Date of Service: 11/27/20 Subjective Update: No complaints at bedside this AM. Tolerating oral diet. Denies any fevers, chills, SOB, chest pain, nausea or vomiting. - Patient Data Vitals - Most Recent: Last Vital Signs Temp 36.9 C 11/27/20 04:00 Pulse 70 11/27/20 04:00 Resp 16 11/27/20 04:00 BP 153/89 H 11/27/20 04:00 Pulse Ox 95 11/27/20 04:00 Weight - Most Recent: 89.902 kg I&O - Last 24 Hours: Intake & Output 11/26/20 11/27/20 11/27/20 22:59 06:59 14:59 Intake Total 350 720 Output Total 0 1325 Balance 350 -605 Lab Results Last 24 Hours: Laboratory Results - last 24 hr 11/26/20 11/26/20 11/26/20 Range/Units 12:36 18:23 20:06 WBC (4.0-11.0) K/uL RBC (4.50-5.90) M/uL Hgb (13.0-17.0) g/dL Hct (38.0-50.0) % MCV (80.0-98.0) fL MCH (27.0-32.0) pg MCHC (31.0-37.0) g/dL RDW Std Deviation (28.0-62.0) fl RDW Coeff of Dinesh (11.0-15.0) % Plt Count (150-400) K/uL MPV (7.40-12.00) fL Neut % (Auto) (48.0-80.0) % Lymph % (Auto) (16.0-40.0) % [place] % (Auto) (0.0-15.0) % Eos % (Auto) (0.0-7.0) % Baso % (Auto) (0.0-1.5) % Neut # (Auto) (1.4-5.7) K/uL Lymph # (Auto) (0.6-2.4) K/uL [place] # (Auto) (0.0-0.8) K/uL Eos # (Auto) (0.0-0.7) K/uL Baso # (Auto) (0.0-0.1) K/uL Nucleated RBC % /100WBC Nucleated RBCs # K/uL Sodium (136-148) mmol/L Potassium (3.5-5.1) mmol/L Chloride (98-107) mmol/L Carbon Dioxide (21.0-32.0) mmol/L BUN (7.0-18.0) mg/dL Creatinine (0.8-1.3) mg/dL Est Cr Clr Drug Dosing mL/min Estimated GFR (MDRD) ml/min Glucose (74-106) mg/dL POC Glucose 166 H 147 H 183 H (60-110) mg/dL Calcium (8.5-10.1) mg/dL Phosphorus (2.6-4.7) mg/dL Magnesium (1.8-2.4) mg/dL Vancomycin Trough (5.0-10.0) ug/mL 11/27/20 11/27/20 11/27/20 Range/Units 06:54 06:54 06:54 WBC 7.83 (4.0-11.0) K/uL RBC 4.11 L (4.50-5.90) M/uL Hgb 11.5 L (13.0-17.0) g/dL Hct 35.4 L (38.0-50.0) % MCV 86.1 (80.0-98.0) fL MCH 28.0 (27.0-32.0) pg MCHC 32.5 (31.0-37.0) g/dL RDW Std Deviation 45.4 (28.0-62.0) fl RDW Coeff of Dinesh 14 (11.0-15.0) % Plt Count 384 (150-400) K/uL MPV 9.10 (7.40-12.00) fL Neut % (Auto) 71.3 (48.0-80.0) % Lymph % (Auto) 14.9 L (16.0-40.0) % [place] % (Auto) 9.1 (0.0-15.0) % Eos % (Auto) 4.1 (0.0-7.0) % Baso % (Auto) 0.6 (0.0-1.5) % Neut # (Auto) 5.6 (1.4-5.7) K/uL Lymph # (Auto) 1.2 (0.6-2.4) K/uL [place] # (Auto) 0.7 (0.0-0.8) K/uL Eos # (Auto) 0.3 (0.0-0.7) K/uL Baso # (Auto) 0.1 (0.0-0.1) K/uL Nucleated RBC % 0.0 /100WBC Nucleated RBCs # 0 K/uL Sodium 141 (136-148) mmol/L Potassium 4.0 (3.5-5.1) mmol/L Chloride 104 (98-107) mmol/L Carbon Dioxide 27.6 (21.0-32.0) mmol/L BUN 11 (7.0-18.0) mg/dL Creatinine 1.0 (0.8-1.3) mg/dL Est Cr Clr Drug Dosing 88.90 mL/min Estimated GFR (MDRD) > 60.0 ml/min Glucose 136 H (74-106) mg/dL POC Glucose (60-110) mg/dL Calcium 8.4 L (8.5-10.1) mg/dL Phosphorus 4.0 (2.6-4.7) mg/dL Magnesium 2.2 (1.8-2.4) mg/dL Vancomycin Trough 33.0 H (5.0-10.0) ug/mL [facility]argas Results Last 24 Hours: Microbiology 11/25/20 15:00 Aerobic Blood Culture - Preliminary Blood - Venous - Lab Draw NO GROWTH AFTER 1 DAY Anaerobic Blood Culture - Preliminary NO GROWTH AFTER 1 DAY 11/25/20 14:42 Aerobic Blood Culture - Preliminary Blood - Venous NO GROWTH AFTER 1 DAY Anaerobic Blood Culture - Final Med Orders - Current: Current Medications Acetaminophen (Tylenol) 650 mg PO Q4H PRN PRN Reason: Pain (Mild 1-3)/fever Dextrose/Water (Dextrose 50% In Water) 50 ml IV ASDIRECTED PRN PRN Reason: Hypoglycemia Enoxaparin Sodium (Lovenox) 40 mg SUBCUT Q24H [facility] Last Admin: 11/26/20 18:25 Dose: 40 mg Documented by: Glucagon (Glucagen) 1 mg IM ASDIRECTED PRN PRN Reason: Hypoglycemia Sodium Chloride (Normal Saline) 1,000 mls @ 999 mls/hr IV ASDIRECTED [facility] Last Admin: 11/25/20 14:31 Dose: 999 mls/hr Documented by: Vancomycin HCl 1.25 gm/ Sodium (Chloride) 250 mls @ 166.667 mls/hr IV Q8H [facility] Last Admin: 11/26/20 23:42 Dose: 166.667 mls/hr Documented by: Piperacillin Sod/Tazobactam (Sod 3.375 gm/ Sodium Chloride) 50 mls @ 100 mls/hr IV Q6H [facility] Last Admin: 11/27/20 01:36 Dose: 100 mls/hr Documented by: Insulin Aspart (Novolog) 0 unit SUBCUT TIDAC [facility]; Protocol Last Admin: 11/26/20 18:25 Dose: Not Given Documented by: Insulin Detemir (Levemir) 10 unit SUBCUT BEDTIME [facility] Last Admin: 11/26/20 20:08 Dose: 10 unit Documented by: Ondansetron HCl (Zofran) 4 mg IVPUSH Q4H PRN PRN Reason: Nausea Pantoprazole Sodium (Protonix) 40 mg PO DAILY [facility] Last Admin: 11/26/20 08:02 Dose: 40 mg Documented by: Vancomycin HCl (Pharmacy To Dose - Vancomycin) 1 dose .XX ASDIRECTED [facility] Discontinued Medications Vancomycin HCl 1.5 gm/ Sodium (Chloride) 500 mls @ 333 mls/hr IV Q24H [facility] Last Admin: 11/25/20 16:06 Dose: 333 mls/hr Documented by: Piperacillin Sod/Tazobactam (Sod 3.375 gm/ Sodium Chloride) 50 mls @ 100 mls/hr IV ONETIME ONE Stop: 11/25/20 15:09 Last Admin: 11/25/20 14:51 Dose: 100 mls/hr Documented by: Piperacillin Sod/Tazobactam (Sod 3.375 gm/ Sodium Chloride) 50 mls @ 100 mls/hr IV Q6H [facility] Last Admin: 11/25/20 21:25 Dose: Not Given Documented by: Iopamidol (Isovue Multipack-370 (76%)) 100 ml IVPUSH ONETIME ONE Stop: 11/25/20 16:02 Last Admin: 11/25/20 16:02 Dose: 100 ml Documented by: - Exam General: Alert, Oriented, Cooperative, No Acute Distress Lungs: Clear to Auscultation, Normal Respiratory Effort Cardiovascular: Regular Rate, Regular Rhythm GI/Abdominal Exam: Normal Bowel Sounds, Soft, Non-Tender, No Distention Extremities: Other (RLE: 3 cm x 3 cm ulcer on plantar surface of right foot, scant amount of serosanguinous fluid with surrounding erythema and edema. There is a shallow skin abrasion approximately 2 cm x 1 cm on dorsal surface of foot near 4th and 5th digits. 1+ pitting edema and erythema of right foot extending proximally to distal leg.) Sepsis Event Note - Evaluation Sepsis Screening Result: No Definite Risk - Focused Exam Vital Signs: Vital Signs Temp Pulse Resp BP Pulse Ox 11/27/20 04:00 36.9 C 70 16 153/89 H 95 11/27/20 00:01 37.0 C 67 16 158/100 H 97 11/26/20 19:41 36.7 C 78 18 151/86 H 95 - Problem List & Annotations (1) Diabetic foot ulcer SNOMED Code(s): 008298207 Code(s): E11.621 - TYPE 2 DIABETES MELLITUS WITH FOOT ULCER; L97.509 - NON- PRESSURE CHRONIC ULCER OTH PRT UNSP FOOT W UNSP SEVERITY Status: Acute Current Visit: Yes - Problem List Review Problem List Initiated/Reviewed/Updated: Yes - My Orders Last 24 Hours: My Active Orders 11/26/20 07:30 Insulin Aspart [NovoLOG] See Protocol SUBCUT TIDAC 11/28/20 05:11 BASIC METABOLIC PANEL,BMP [CHEM] AM CBC WITH AUTO DIFF [HEME] AM - Plan Plan:: Assessment and Plan: 1. Infected diabetic foot ulcers of RLE: - Patient on IV vancomycin and zosyn. Wound cultures growing S. Aureus. Blood cultures negative so far. Wound care has been consulted and recommended podiatry consult. Will order MRI. - CT of right foot showed diffuse severe swelling with multiple soft tissue ulcers in the plantar surface of the foot and no evidence of osteomyelitis. 2. Diabetes mellitus type 2: Non-compliant with meds, states "a photocopier technician took his meds along with his car" - Start ADA diet, SSI and accuchecks TIDAC. Levemir 10 units at bedtime. 3. DVT prophylaxis: - Lovenox 40 mg subcut qd. <Saran Rosales - Last Filed: 11/27/20 22:33> - Patient Data Vitals - Most Recent: Last Vital Signs Temp 36.6 C 11/27/20 20:00 Pulse 68 11/27/20 20:00 Resp 18 11/27/20 20:00 BP 157/84 H 11/27/20 20:00 Pulse Ox 96 11/27/20 20:00 I&O - Last 24 Hours: Intake & Output 11/27/20 11/27/20 11/27/20 06:59 14:59 22:59 Intake Total 720 350 560 Output Total 1325 725 Balance -605 350 -165 Lab Results Last 24 Hours: Laboratory Results - last 24 hr 11/26/20 11/27/20 11/27/20 Range/Units 20:06 06:42 06:54 WBC (4.0-11.0) K/uL RBC (4.50-5.90) M/uL Hgb (13.0-17.0) g/dL Hct (38.0-50.0) % MCV (80.0-98.0) fL MCH (27.0-32.0) pg MCHC (31.0-37.0) g/dL RDW Std Deviation (28.0-62.0) fl RDW Coeff of Dinesh (11.0-15.0) % Plt Count (150-400) K/uL MPV (7.40-12.00) fL Neut % (Auto) (48.0-80.0) % Lymph % (Auto) (16.0-40.0) % [place] % (Auto) (0.0-15.0) % Eos % (Auto) (0.0-7.0) % Baso % (Auto) (0.0-1.5) % Neut # (Auto) (1.4-5.7) K/uL Lymph # (Auto) (0.6-2.4) K/uL [place] # (Auto) (0.0-0.8) K/uL Eos # (Auto) (0.0-0.7) K/uL Baso # (Auto) (0.0-0.1) K/uL Nucleated RBC % /100WBC Nucleated RBCs # K/uL Sodium (136-148) mmol/L Potassium (3.5-5.1) mmol/L Chloride (98-107) mmol/L Carbon Dioxide (21.0-32.0) mmol/L BUN (7.0-18.0) mg/dL Creatinine (0.8-1.3) mg/dL Est Cr Clr Drug Dosing mL/min Estimated GFR (MDRD) ml/min Glucose (74-106) mg/dL POC Glucose 183 H 115 H (60-110) mg/dL Calcium (8.5-10.1) mg/dL Phosphorus (2.6-4.7) mg/dL Magnesium (1.8-2.4) mg/dL Vancomycin Trough 33.0 H (5.0-10.0) ug/mL 11/27/20 11/27/20 11/27/20 Range/Units 06:54 06:54 11:36 WBC 7.83 (4.0-11.0) K/uL RBC 4.11 L (4.50-5.90) M/uL Hgb 11.5 L (13.0-17.0) g/dL Hct 35.4 L (38.0-50.0) % MCV 86.1 (80.0-98.0) fL MCH 28.0 (27.0-32.0) pg MCHC 32.5 (31.0-37.0) g/dL RDW Std Deviation 45.4 (28.0-62.0) fl RDW Coeff of Dinesh 14 (11.0-15.0) % Plt Count 384 (150-400) K/uL MPV 9.10 (7.40-12.00) fL Neut % (Auto) 71.3 (48.0-80.0) % Lymph % (Auto) 14.9 L (16.0-40.0) % [place] % (Auto) 9.1 (0.0-15.0) % Eos % (Auto) 4.1 (0.0-7.0) % Baso % (Auto) 0.6 (0.0-1.5) % Neut # (Auto) 5.6 (1.4-5.7) K/uL Lymph # (Auto) 1.2 (0.6-2.4) K/uL [place] # (Auto) 0.7 (0.0-0.8) K/uL Eos # (Auto) 0.3 (0.0-0.7) K/uL Baso # (Auto) 0.1 (0.0-0.1) K/uL Nucleated RBC % 0.0 /100WBC Nucleated RBCs # 0 K/uL Sodium 141 (136-148) mmol/L Potassium 4.0 (3.5-5.1) mmol/L Chloride 104 (98-107) mmol/L Carbon Dioxide 27.6 (21.0-32.0) mmol/L BUN 11 (7.0-18.0) mg/dL Creatinine 1.0 (0.8-1.3) mg/dL Est Cr Clr Drug Dosing 88.90 mL/min Estimated GFR (MDRD) > 60.0 ml/min Glucose 136 H (74-106) mg/dL POC Glucose 190 H (60-110) mg/dL Calcium 8.4 L (8.5-10.1) mg/dL Phosphorus 4.0 (2.6-4.7) mg/dL Magnesium 2.2 (1.8-2.4) mg/dL Vancomycin Trough (5.0-10.0) ug/mL 11/27/20 Range/Units 17:15 WBC (4.0-11.0) K/uL RBC (4.50-5.90) M/uL Hgb (13.0-17.0) g/dL Hct (38.0-50.0) % MCV (80.0-98.0) fL MCH (27.0-32.0) pg MCHC (31.0-37.0) g/dL RDW Std Deviation (28.0-62.0) fl RDW Coeff of Dinesh (11.0-15.0) % Plt Count (150-400) K/uL MPV (7.40-12.00) fL Neut % (Auto) (48.0-80.0) % Lymph % (Auto) (16.0-40.0) % [place] % (Auto) (0.0-15.0) % Eos % (Auto) (0.0-7.0) % Baso % (Auto) (0.0-1.5) % Neut # (Auto) (1.4-5.7) K/uL Lymph # (Auto) (0.6-2.4) K/uL [place] # (Auto) (0.0-0.8) K/uL Eos # (Auto) (0.0-0.7) K/uL Baso # (Auto) (0.0-0.1) K/uL Nucleated RBC % /100WBC Nucleated RBCs # K/uL Sodium (136-148) mmol/L Potassium (3.5-5.1) mmol/L Chloride (98-107) mmol/L Carbon Dioxide (21.0-32.0) mmol/L BUN (7.0-18.0) mg/dL Creatinine (0.8-1.3) mg/dL Est Cr Clr Drug Dosing mL/min Estimated GFR (MDRD) ml/min Glucose (74-106) mg/dL POC Glucose 150 H (60-110) mg/dL Calcium (8.5-10.1) mg/dL Phosphorus (2.6-4.7) mg/dL Magnesium (1.8-2.4) mg/dL Vancomycin Trough (5.0-10.0) ug/mL [facility] Results Last 24 Hours: Microbiology 11/25/20 15:00 Aerobic Blood Culture - Preliminary Blood - Venous - Lab Draw NO GROWTH AFTER 2 DAYS Anaerobic Blood Culture - Preliminary NO GROWTH AFTER 2 DAYS 11/25/20 14:42 Aerobic Blood Culture - Preliminary Blood - Venous NO GROWTH AFTER 2 DAYS Anaerobic Blood Culture - Final 11/25/20 14:23 Wound Culture - Preliminary Foot, Right Staphylococcus Aureus Med Orders - Current: Current Medications Acetaminophen (Tylenol) 650 mg PO Q4H PRN PRN Reason: Pain (Mild 1-3)/fever Dextrose/Water (Dextrose 50% In Water) 50 ml IV ASDIRECTED PRN PRN Reason: Hypoglycemia Enoxaparin Sodium (Lovenox) 40 mg SUBCUT Q24H [facility] Last Admin: 11/27/20 18:06 Dose: 40 mg Documented by: Glucagon (Glucagen) 1 mg IM ASDIRECTED PRN PRN Reason: Hypoglycemia Sodium Chloride (Normal Saline) 1,000 mls @ 999 mls/hr IV ASDIRECTED [facility] Last Admin: 11/25/20 14:31 Dose: 999 mls/hr Documented by: Piperacillin Sod/Tazobactam (Sod 3.375 gm/ Sodium Chloride) 50 mls @ 100 mls/hr IV Q6H [facility] Last Admin: 11/27/20 20:25 Dose: 100 mls/hr Documented by: Vancomycin HCl 1.25 gm/ Sodium (Chloride) 250 mls @ 166.667 mls/hr IV Q12H [facility] Last Admin: 11/27/20 11:58 Dose: 166.667 mls/hr Documented by: Insulin Aspart (Novolog) 0 unit SUBCUT TIDAC [facility]; Protocol Last Admin: 11/27/20 17:19 Dose: 1 unit Documented by: Insulin Detemir (Levemir) 10 unit SUBCUT BEDTIME [facility] Last Admin: 11/27/20 20:30 Dose: 10 unit Documented by: Ondansetron HCl (Zofran) 4 mg IVPUSH Q4H PRN PRN Reason: Nausea Pantoprazole Sodium (Protonix) 40 mg PO DAILY [facility] Last Admin: 11/27/20 08:24 Dose: 40 mg Documented by: Vancomycin HCl (Pharmacy To Dose - Vancomycin) 1 dose .XX ASDIRECTED [facility] Discontinued Medications Al Hydroxide/Mg Hydroxide 15 (ml/ Lidocaine HCl 5 ml) 0 ml PO ONETIME ONE Stop: 11/27/20 13:22 Last Admin: 11/27/20 14:04 Dose: 1 each Documented by: Vancomycin HCl 1.5 gm/ Sodium (Chloride) 500 mls @ 333 mls/hr IV Q24H [facility] Last Admin: 11/25/20 16:06 Dose: 333 mls/hr Documented by: Piperacillin Sod/Tazobactam (Sod 3.375 gm/ Sodium Chloride) 50 mls @ 100 mls/hr IV ONETIME ONE Stop: 11/25/20 15:09 Last Admin: 11/25/20 14:51 Dose: 100 mls/hr Documented by: Piperacillin Sod/Tazobactam (Sod 3.375 gm/ Sodium Chloride) 50 mls @ 100 mls/hr IV Q6H [facility] Last Admin: 11/25/20 21:25 Dose: Not Given Documented by: Vancomycin HCl 1.25 gm/ Sodium (Chloride) 250 mls @ 166.667 mls/hr IV Q8H [facility] Last Admin: 11/26/20 23:42 Dose: 166.667 mls/hr Documented by: Iopamidol (Isovue Multipack-370 (76%)) 100 ml IVPUSH ONETIME ONE Stop: 11/25/20 16:02 Last Admin: 11/25/20 16:02 Dose: 100 ml Documented by: Sepsis Event Note - Focused Exam Vital Signs: Vital Signs Temp Pulse Resp BP Pulse Ox 11/27/20 20:00 36.6 C 68 18 157/84 H 96 11/27/20 16:00 36.4 C 75 16 159/87 H 95 11/27/20 11:54 36.4 C 71 18 150/89 H 96 - Problem List & Annotations (1) Diabetes mellitus SNOMED Code(s): 35556994 Code(s): E11.9 - TYPE 2 DIABETES MELLITUS WITHOUT COMPLICATIONS Status: Acute Current Visit: Yes (2) Diabetic foot ulcer SNOMED Code(s): 736209512 Code(s): E11.621 - TYPE 2 DIABETES MELLITUS WITH FOOT ULCER; L97.509 - NON- PRESSURE CHRONIC ULCER OTH PRT UNSP FOOT W UNSP SEVERITY Status: Acute Current Visit: Yes (3) Hx of BKA SNOMED Code(s): 058578613, 050910941 Code(s): Z89.519 - ACQUIRED ABSENCE OF UNSPECIFIED LEG BELOW KNEE Status: Acute Current Visit: Yes - Plan Plan:: I have seen and evaluated the patient and agree with the residents note unless specified in my note.
[2020-11-27] MEDS: Pantoprazole 40 MG Tab.CR PO SCH (08:24)
[2020-11-27] MEDS: Insulin Aspart 100 Units/ML 3 ML Pen SUBCUT SCH ×3 (08:24→17:19)
[2020-11-27] MEDS ORDERED: Alum Hydrox/Mag Hydrox/Simeth 15 ML, Lidocaine 2% 5 ML PO ONE ×2 (13:21)
--- NOTE | 2020-11-27 17:18 | PCM.CONS ---
H&P History of Present Illness - General Date of Service: 11/27/20 Admit Problem/Dx: Admission Diagnosis/Problem Admission Diagnosis/Problem Cellulitis Source of Information: Patient History Limitations: Reports: No Limitations - History of Present Illness Initial Comments - Free Text/Narative: Patient is a 55 year old male who presented to the ER with a right foot infection. 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 He was admitted to the medicine team on 11/25. Labs were unremarkable. CT of the right foot showed cellulitis with no evidence of abscess. He has been on broad spectrum antibiotics. His vitals have been stable. The patient feels his swelling has greatly improved. The wound is covered with an Allevyn dressing and secured in place with nadir wrap. I was asked to assess the wound and see if it requires debridement. right foot Pain Score (Numeric/FACES): 0 - Related Data Allergies/Adverse Reactions: Allergies Allergy/AdvReac Type Severity Reaction Status Date / Time No Known Allergies Allergy Verified 11/26/20 06:48 Home Medications: Home Meds . [Unable to Verify Home Med List] 11/25/20 [History] Past Medical History Musculoskeletal History: Reports: Amputation, Other (See Below) Other Musculoskeletal History: left foot amputation Psychiatric History: Reports: Addiction, Depression Endocrine/Metabolic History: Reports: Other (See Below) Other Endocrine/Metabolic History: Pt. unsure if he is Type I or Type II diabetic. Social & Family History - Family History Family Medical History: No Pertinent Family History - Tobacco Use Tobacco Use Status *Q: Never Tobacco User - Caffeine Use Caffeine Use: Reports: Soda - Recreational Drug Use Recreational Drug Use: Yes Drug Use in Last 12 Months: Yes Recreational Drug Type: Reports: Methamphetamine Recreational Drug Use Frequency: Not Used In Over 6 Months H&P Review of Systems - Review of Systems: Review Of Systems: Comprehensive ROS is negative, except as noted in HPI. Exam - Exam Exam: See Below - Vital Signs Vital Signs: Last Vital Signs Temp 36.4 C 11/27/20 16:00 Pulse 75 11/27/20 16:00 Resp 16 11/27/20 16:00 BP 159/87 H 11/27/20 16:00 Pulse Ox 95 11/27/20 16:00 Weight: 89.902 kg - Exam General: Alert, Oriented, Cooperative Lungs: Normal Respiratory Effort Extremities: Other (2+ PT pulse on right lower extremity. Unable to palpate DP. Soft tissue swelling along the plantar aspect of the foot. 2 cm area of compromised skin on the plantar aspect of the foot at the base of the great toe. The skin is not frankly necrotic. There is a pin hole area just medial to this that appears ulcerated. There is redness over the dorsum of the foot associated with warmth. ) - Patient Data Lab Results Last 24 hrs: Laboratory Results - last 24 hr 11/26/20 11/26/20 11/27/20 Range/Units 18:23 20:06 06:54 WBC (4.0-11.0) K/uL RBC (4.50-5.90) M/uL Hgb (13.0-17.0) g/dL Hct (38.0-50.0) % MCV (80.0-98.0) fL MCH (27.0-32.0) pg MCHC (31.0-37.0) g/dL RDW Std Deviation (28.0-62.0) fl RDW Coeff of Dinesh (11.0-15.0) % Plt Count (150-400) K/uL MPV (7.40-12.00) fL Neut % (Auto) (48.0-80.0) % Lymph % (Auto) (16.0-40.0) % [place] % (Auto) (0.0-15.0) % Eos % (Auto) (0.0-7.0) % Baso % (Auto) (0.0-1.5) % Neut # (Auto) (1.4-5.7) K/uL Lymph # (Auto) (0.6-2.4) K/uL [place] # (Auto) (0.0-0.8) K/uL Eos # (Auto) (0.0-0.7) K/uL Baso # (Auto) (0.0-0.1) K/uL Nucleated RBC % /100WBC Nucleated RBCs # K/uL Sodium (136-148) mmol/L Potassium (3.5-5.1) mmol/L Chloride (98-107) mmol/L Carbon Dioxide (21.0-32.0) mmol/L BUN (7.0-18.0) mg/dL Creatinine (0.8-1.3) mg/dL Est Cr Clr Drug Dosing mL/min Estimated GFR (MDRD) ml/min Glucose (74-106) mg/dL POC Glucose 147 H 183 H (60-110) mg/dL Calcium (8.5-10.1) mg/dL Phosphorus (2.6-4.7) mg/dL Magnesium (1.8-2.4) mg/dL Vancomycin Trough 33.0 H (5.0-10.0) ug/mL 11/27/20 11/27/20 Range/Units 06:54 06:54 WBC 7.83 (4.0-11.0) K/uL RBC 4.11 L (4.50-5.90) M/uL Hgb 11.5 L (13.0-17.0) g/dL Hct 35.4 L (38.0-50.0) % MCV 86.1 (80.0-98.0) fL MCH 28.0 (27.0-32.0) pg MCHC 32.5 (31.0-37.0) g/dL RDW Std Deviation 45.4 (28.0-62.0) fl RDW Coeff of Dinesh 14 (11.0-15.0) % Plt Count 384 (150-400) K/uL MPV 9.10 (7.40-12.00) fL Neut % (Auto) 71.3 (48.0-80.0) % Lymph % (Auto) 14.9 L (16.0-40.0) % [place] % (Auto) 9.1 (0.0-15.0) % Eos % (Auto) 4.1 (0.0-7.0) % Baso % (Auto) 0.6 (0.0-1.5) % Neut # (Auto) 5.6 (1.4-5.7) K/uL Lymph # (Auto) 1.2 (0.6-2.4) K/uL [place] # (Auto) 0.7 (0.0-0.8) K/uL Eos # (Auto) 0.3 (0.0-0.7) K/uL Baso # (Auto) 0.1 (0.0-0.1) K/uL Nucleated RBC % 0.0 /100WBC Nucleated RBCs # 0 K/uL Sodium 141 (136-148) mmol/L Potassium 4.0 (3.5-5.1) mmol/L Chloride 104 (98-107) mmol/L Carbon Dioxide 27.6 (21.0-32.0) mmol/L BUN 11 (7.0-18.0) mg/dL Creatinine 1.0 (0.8-1.3) mg/dL Est Cr Clr Drug Dosing 88.90 mL/min Estimated GFR (MDRD) > 60.0 ml/min Glucose 136 H (74-106) mg/dL POC Glucose (60-110) mg/dL Calcium 8.4 L (8.5-10.1) mg/dL Phosphorus 4.0 (2.6-4.7) mg/dL Magnesium 2.2 (1.8-2.4) mg/dL Vancomycin Trough (5.0-10.0) ug/mL Result Diagrams: 11/27/20 06:54 11/27/20 06:54 Vargas Results Last 24 hrs: Microbiology 11/25/20 15:00 Aerobic Blood Culture - Preliminary Blood - Venous - Lab Draw NO GROWTH AFTER 2 DAYS Anaerobic Blood Culture - Preliminary NO GROWTH AFTER 2 DAYS 11/25/20 14:42 Aerobic Blood Culture - Preliminary Blood - Venous NO GROWTH AFTER 2 DAYS Anaerobic Blood Culture - Final 11/25/20 14:23 Wound Culture - Preliminary Foot, Right Staphylococcus Aureus Sepsis Event Note - Evaluation Sepsis Screening Result: No Definite Risk - Focused Exam Vital Signs: Vital Signs Temp Pulse Resp BP Pulse Ox 11/27/20 16:00 36.4 C 75 16 159/87 H 95 11/27/20 11:54 36.4 C 71 18 150/89 H 96 11/27/20 07:53 36.6 C 70 17 151/85 H 94 L Consult PN Assessment/Plan Procedures: Procedures COMPLETE CBC W/AUTO DIFF WBC (12/21/18) COMPREHEN METABOLIC PANEL (12/21/18) CRITICAL CARE FIRST HOUR (12/21/18) CT ABD & PELV W/CONTRAST (12/21/18) ELECTROCARDIOGRAM TRACING (12/21/18) HYDRATE IV INFUSION ADD-ON (12/21/18) IMMUNIZATION ADMIN (12/21/18) PROTHROMBIN TIME (12/21/18) ROUTINE VENIPUNCTURE (12/21/18) TDAP VACCINE 7 YRS/> IM (12/21/18) THER/PROPH/DIAG IV INF INIT (12/21/18) URINALYSIS AUTO W/O SCOPE (12/21/18) X-RAY EXAM ABDOMEN 1 VIEW (12/21/18) X-RAY EXAM CHEST 1 VIEW (12/21/18) X-RAY EXAM OF PELVIS (12/21/18) (1) Cellulitis SNOMED Code(s): 973870731 Code(s): L03.90 - CELLULITIS, UNSPECIFIED Current Visit: Yes Qualifiers: Site of cellulitis: extremity Site of cellulitis of extremity: lower extremity Laterality: right Qualified Code(s): L03.115 - Cellulitis of right lower limb (2) Diabetic foot ulcer SNOMED Code(s): 768281666 Code(s): E11.621 - TYPE 2 DIABETES MELLITUS WITH FOOT ULCER; L97.509 - NON- PRESSURE CHRONIC ULCER OTH PRT UNSP FOOT W UNSP SEVERITY Current Visit: Yes Problem List Initiated/Reviewed/Updated: Yes Plan: The foot ulcer does not appear to need debridement at this point in time. It is not frankly necrotic and is not associated with fluctuance or an abscess. Wound cultures are growing frias sensitive staph aureus. He should continue antibiotics. Normally the area would be evaluated by MRI to rule out osteomyelitis. Due to metal in his body he cannot have this. He states this is how the ulcers on his other foot started. An argument could be made to treat him aggressively with outpatient IV antibiotics like he had osteomyelitis, however I will leave this decision up to the medicine team. Ok to continue with current dressings and change daily. Keep foot elevated as much as possible and avoid prolonged standing or walking. Would follow up outpatient with a flat grinder operator for further management. Call with any questions or concerns.
[2020-11-27] MEDS: Enoxaparin 40 MG/0.4 ML Syringe SUBCUT SCH (18:06)
[2020-11-27] MEDS: Insulin Detemir 100 Units/ML 3 ML Pen SUBCUT SCH (20:30)
[2020-11-28] MEDS: Piperacillin/Tazobactam 3.375 GM in Sodium Chloride 0.9% 50 ML IV SCH ×3 (02:14→14:00)
[2020-11-28 05:54] LABS: BLOOD UREA NITROGEN,BUN 12 mg/dL (7.0-18.0); CARBON DIOXIDE,CO2 26.9 mmol/L (21.0-32.0); CHLORIDE,CL 103 mmol/L (98-107); GLUCOSE RANDOM 128 mg/dL (74-106); SODIUM,NA 139 mmol/L (136-148)
[2020-11-28] MEDS: Insulin Aspart 100 Units/ML 3 ML Pen SUBCUT SCH ×2 (07:49→11:48)
[2020-11-28] MEDS: Pantoprazole 40 MG Tab.CR PO SCH (08:22)
--- NOTE | 2020-11-28 08:25 | PCM.PN ---
- General Info Date of Service: 11/28/20 Subjective Update: No complaints at bedside this AM. Tolerating oral diet and having bowel movements. No fevers, chills, nausea or vomiting. - Patient Data Vitals - Most Recent: Last Vital Signs Temp 36.4 C 11/28/20 07:08 Pulse 69 11/28/20 07:08 Resp 12 11/28/20 07:08 BP 144/86 H 11/28/20 07:08 Pulse Ox 93 L 11/28/20 07:08 Weight - Most Recent: 89.902 kg I&O - Last 24 Hours: Intake & Output 11/27/20 11/28/20 11/28/20 22:59 06:59 14:59 Intake Total 560 520 Output Total 725 1040 Balance -165 -520 Lab Results Last 24 Hours: Laboratory Results - last 24 hr 11/27/20 11/27/20 11/27/20 Range/Units 06:42 11:36 17:15 WBC (4.0-11.0) K/uL RBC (4.50-5.90) M/uL Hgb (13.0-17.0) g/dL Hct (38.0-50.0) % MCV (80.0-98.0) fL MCH (27.0-32.0) pg MCHC (31.0-37.0) g/dL RDW Std Deviation (28.0-62.0) fl RDW Coeff of Dinesh (11.0-15.0) % Plt Count (150-400) K/uL MPV (7.40-12.00) fL Neut % (Auto) (48.0-80.0) % Lymph % (Auto) (16.0-40.0) % [place] % (Auto) (0.0-15.0) % Eos % (Auto) (0.0-7.0) % Baso % (Auto) (0.0-1.5) % Neut # (Auto) (1.4-5.7) K/uL Lymph # (Auto) (0.6-2.4) K/uL [place] # (Auto) (0.0-0.8) K/uL Eos # (Auto) (0.0-0.7) K/uL Baso # (Auto) (0.0-0.1) K/uL Nucleated RBC % /100WBC Nucleated RBCs # K/uL Sodium (136-148) mmol/L Potassium (3.5-5.1) mmol/L Chloride (98-107) mmol/L Carbon Dioxide (21.0-32.0) mmol/L BUN (7.0-18.0) mg/dL Creatinine (0.8-1.3) mg/dL Est Cr Clr Drug Dosing mL/min Estimated GFR (MDRD) ml/min Glucose (74-106) mg/dL POC Glucose 115 H 190 H 150 H (60-110) mg/dL Calcium (8.5-10.1) mg/dL 11/28/20 11/28/20 Range/Units 05:22 05:22 WBC 7.24 (4.0-11.0) K/uL RBC 4.23 L (4.50-5.90) M/uL Hgb 11.8 L (13.0-17.0) g/dL Hct 36.3 L (38.0-50.0) % MCV 85.8 (80.0-98.0) fL MCH 27.9 (27.0-32.0) pg MCHC 32.5 (31.0-37.0) g/dL RDW Std Deviation 45.1 (28.0-62.0) fl RDW Coeff of Dinesh 14 (11.0-15.0) % Plt Count 426 H (150-400) K/uL MPV 9.10 (7.40-12.00) fL Neut % (Auto) 67.6 (48.0-80.0) % Lymph % (Auto) 19.8 (16.0-40.0) % [place] % (Auto) 8.7 (0.0-15.0) % Eos % (Auto) 3.6 (0.0-7.0) % Baso % (Auto) 0.3 (0.0-1.5) % Neut # (Auto) 4.9 (1.4-5.7) K/uL Lymph # (Auto) 1.4 (0.6-2.4) K/uL [place] # (Auto) 0.6 (0.0-0.8) K/uL Eos # (Auto) 0.3 (0.0-0.7) K/uL Baso # (Auto) 0.0 (0.0-0.1) K/uL Nucleated RBC % 0.0 /100WBC Nucleated RBCs # 0 K/uL Sodium 139 (136-148) mmol/L Potassium 4.0 (3.5-5.1) mmol/L Chloride 103 (98-107) mmol/L Carbon Dioxide 26.9 (21.0-32.0) mmol/L BUN 12 (7.0-18.0) mg/dL Creatinine 1.1 (0.8-1.3) mg/dL Est Cr Clr Drug Dosing 80.81 mL/min Estimated GFR (MDRD) > 60.0 ml/min Glucose 128 H (74-106) mg/dL POC Glucose (60-110) mg/dL Calcium 8.5 (8.5-10.1) mg/dL [facility] Results Last 24 Hours: Microbiology 11/25/20 14:23 Wound Culture - Final Foot, Right Staphylococcus Aureus Streptococcus Group A 11/25/20 15:00 Aerobic Blood Culture - Preliminary Blood - Venous - Lab Draw NO GROWTH AFTER 2 DAYS Anaerobic Blood Culture - Preliminary NO GROWTH AFTER 2 DAYS 11/25/20 14:42 Aerobic Blood Culture - Preliminary Blood - Venous NO GROWTH AFTER 2 DAYS Anaerobic Blood Culture - Final Med Orders - Current: Current Medications Acetaminophen (Tylenol) 650 mg PO Q4H PRN PRN Reason: Pain (Mild 1-3)/fever Dextrose/Water (Dextrose 50% In Water) 50 ml IV ASDIRECTED PRN PRN Reason: Hypoglycemia Enoxaparin Sodium (Lovenox) 40 mg SUBCUT Q24H [facility] Last Admin: 11/27/20 18:06 Dose: 40 mg Documented by: Glucagon (Glucagen) 1 mg IM ASDIRECTED PRN PRN Reason: Hypoglycemia Sodium Chloride (Normal Saline) 1,000 mls @ 999 mls/hr IV ASDIRECTED [facility] Last Admin: 11/25/20 14:31 Dose: 999 mls/hr Documented by: Piperacillin Sod/Tazobactam (Sod 3.375 gm/ Sodium Chloride) 50 mls @ 100 mls/hr IV Q6H [facility] Last Admin: 11/28/20 08:22 Dose: 100 mls/hr Documented by: Vancomycin HCl 1.25 gm/ Sodium (Chloride) 250 mls @ 166.667 mls/hr IV Q12H [facility] Last Admin: 11/28/20 00:15 Dose: 166.667 mls/hr Documented by: Insulin Aspart (Novolog) 0 unit SUBCUT TIDAC [facility]; Protocol Last Admin: 11/28/20 07:49 Dose: Not Given Documented by: Insulin Detemir (Levemir) 10 unit SUBCUT BEDTIME [facility] Last Admin: 11/27/20 20:30 Dose: 10 unit Documented by: Ondansetron HCl (Zofran) 4 mg IVPUSH Q4H PRN PRN Reason: Nausea Pantoprazole Sodium (Protonix) 40 mg PO DAILY [facility] Last Admin: 11/28/20 08:22 Dose: 40 mg Documented by: Vancomycin HCl (Pharmacy To Dose - Vancomycin) 1 dose .XX ASDIRECTED [facility] Discontinued Medications Al Hydroxide/Mg Hydroxide 15 (ml/ Lidocaine HCl 5 ml) 0 ml PO ONETIME ONE Stop: 11/27/20 13:22 Last Admin: 11/27/20 14:04 Dose: 1 each Documented by: Vancomycin HCl 1.5 gm/ Sodium (Chloride) 500 mls @ 333 mls/hr IV Q24H [facility] Last Admin: 11/25/20 16:06 Dose: 333 mls/hr Documented by: Piperacillin Sod/Tazobactam (Sod 3.375 gm/ Sodium Chloride) 50 mls @ 100 mls/hr IV ONETIME ONE Stop: 11/25/20 15:09 Last Admin: 11/25/20 14:51 Dose: 100 mls/hr Documented by: Piperacillin Sod/Tazobactam (Sod 3.375 gm/ Sodium Chloride) 50 mls @ 100 mls/hr IV Q6H [facility] Last Admin: 11/25/20 21:25 Dose: Not Given Documented by: Vancomycin HCl 1.25 gm/ Sodium (Chloride) 250 mls @ 166.667 mls/hr IV Q8H [facility] Last Admin: 11/26/20 23:42 Dose: 166.667 mls/hr Documented by: Iopamidol (Isovue Multipack-370 (76%)) 100 ml IVPUSH ONETIME ONE Stop: 11/25/20 16:02 Last Admin: 11/25/20 16:02 Dose: 100 ml Documented by: - Exam General: Alert, Oriented, Cooperative, No Acute Distress Lungs: Clear to Auscultation, Normal Respiratory Effort Cardiovascular: Regular Rate, Regular Rhythm GI/Abdominal Exam: Normal Bowel Sounds, Soft, Non-Tender, No Distention Extremities: Other (RLE: 3 cm x 3 cm ulcer on plantar surface of right foot, scant amount of serosanguinous fluid with surrounding erythema and edema. There is a shallow skin abrasion approximately 2 cm x 1 cm on dorsal surface of foot near 4th and 5th digits. Trace pitting edema and erythema of right foot extending proximally to distal leg.) Sepsis Event Note - Evaluation Sepsis Screening Result: No Definite Risk - Focused Exam Vital Signs: Vital Signs Temp Pulse Resp BP Pulse Ox 11/28/20 07:08 36.4 C 69 12 144/86 H 93 L 11/28/20 04:00 36.9 C 72 19 148/75 H 97 11/28/20 00:00 36.8 C 62 18 152/82 H 96 - Problem List & Annotations (1) Diabetic foot ulcer SNOMED Code(s): 795849297 Code(s): E11.621 - TYPE 2 DIABETES MELLITUS WITH FOOT ULCER; L97.509 - NON- PRESSURE CHRONIC ULCER OTH PRT UNSP FOOT W UNSP SEVERITY Status: Acute Current Visit: Yes (2) Unable to ambulate SNOMED Code(s): 552158750 Code(s): R26.2 - DIFFICULTY IN WALKING, NOT ELSEWHERE CLASSIFIED Status: Acute Current Visit: Yes - Problem List Review Problem List Initiated/Reviewed/Updated: Yes - My Orders Last 24 Hours: My Active Orders 11/27/20 13:24 Consult to Physician [CONS] Routine 11/27/20 13:25 Notify Provider Consults [RC] ASDIRECTED - Plan Plan:: Assessment and Plan: 1. Infected diabetic foot ulcers of RLE: - Continue IV vancomycin and zosyn. Wound cultures growing S. Aureus and group A strep. Blood cultures negative. Unable to obtain MRI as patient has metal in his body. General surgery consulted and patient does not appear to need debridement, can follow-up outpatient with podiatry, continue daily dressings changes, keep foot elevated as much as possible and continue antibiotic therapy. - Wound care consulted. - CT of right foot showed diffuse severe swelling with multiple soft tissue ulcers in the plantar surface of the foot and no evidence of osteomyelitis. 2. Diabetes mellitus type 2, non-compliant with medications: - Start ADA diet, SSI and accuchecks TIDAC. Levemir 10 units at bedtime. 3. DVT prophylaxis: - Lovenox 40 mg subcut qd.
--- NOTE | 2020-11-28 11:31 | PCM.DCSUM1 ---
<Vince Carrasquillo - Last Filed: 11/28/20 15:01> Discharge Summary - Hospital Course Free Text/Narrative:: 55-year-old male admitted for infected diabetic foot ulcers of right foot. 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 He is non-compliant with his insulin medication. CT of right foot showed diffuse severe swelling with multiple soft tissue ulcers in the plantar surface of the foot and no evidence of osteomyelitis. Unable to obtain MRI due to patient having metal in his body. Patient was treated with IV vancomycin and zosyn. Blood cultures were negative. Wound cultures grew MSSA and group A strep. Wound care was consulted. There was no podiatry coverage available for consult. General surgery consulted who did not feel debridement indicated. General surgery recommended, outpatient podiatry follow-up, continued antibiotics, daily dressing changes, keep foot elevated as much as possible and to avoid prolonged standing or walking. As patient has history of left BKA he is unable to ambulate and is need of a wheelchair. Script for wheelchair was provided. He was discharged on PO levaquin and metronidazole for an additional 12 days to complete a total 14-day course. Follow-up podiatry appointment made prior to discharge. - Discharge Data Discharge Date: 11/28/20 Discharge Disposition: Home, W Home Health Agency Condition: Stable - Referral to Home Health Date of Face to Face Encounter: 11/28/20 Reason for Homebound Status: Patient is unable to safely navigate stairs without the assistance of another person due to safety reasons. Patient is unable to ambulate due to medical condition. Primary Care Physician: PCP Not In Area Skilled Need: RN to monitor and assessment of wound healing and assist with dressing changes. - Discharge Diagnosis/Problem(s) (1) Diabetic foot ulcer SNOMED Code(s): 520874171 ICD Code: E11.621 - TYPE 2 DIABETES MELLITUS WITH FOOT ULCER; L97.509 - NON- PRESSURE CHRONIC ULCER OTH PRT UNSP FOOT W UNSP SEVERITY Status: Acute (2) Unable to ambulate SNOMED Code(s): 440469132 ICD Code: R26.2 - DIFFICULTY IN WALKING, NOT ELSEWHERE CLASSIFIED Status: Acute - Patient Summary/Data Consults: Consultations 11/25/20 18:00 Consult to Wound Care Services [CONS] Stat 11/27/20 13:24 Consult to Physician [CONS] Routine - Patient Instructions Diet: Diabetic Diet Activity: Elevate Extremity, Non Weight Bearing Activity, Other: Elevate right leg as much as possible, no prolonged walking or standing. Notify Provider of: Fever, Increased Pain, Swelling and Redness, Drainage, Nausea and/or Vomiting - Discharge Plan *PRESCRIPTION DRUG MONITORING PROGRAM REVIEWED*: Not Applicable *COPY OF PRESCRIPTION DRUG MONITORING REPORT IN PATIENT MAX: Not Applicable Prescriptions/Med Rec: levoFLOXacin [Levaquin] 750 mg PO DAILY 12 Days #12 tab Insulin Detemir [Levemir] 10 unit SUBCUT BEDTIME 30 Days #3 pen metroNIDAZOLE [Metronidazole] 500 mg PO Q8H 12 Days #36 tablet Home Medications: Home Meds Insulin Detemir [Levemir] 10 unit SUBCUT BEDTIME 30 Days #3 pen 11/28/20 [Rx] levoFLOXacin [Levaquin] 750 mg PO DAILY 12 Days #12 tab 11/28/20 [Rx] metroNIDAZOLE [Metronidazole] 500 mg PO Q8H 12 Days #36 tablet 11/28/20 [Rx] Oxygen Therapy Mode: Room Air Patient Handouts: Diabetes Mellitus and Foot Care, Cellulitis, Adult, [id number], Insulin Detemir injection, Levofloxacin tablets, How to Use a Wheelchair, Metronidazole tablets or capsules, Diabetes Mellitus and Nutrition, Adult Referrals: Deanna Houser PA [Physician Manager Play] - 12/07/20 10:00 am Fredo Cardona DPM [Physician] - 12/04/20 2:00 pm - Discharge Summary/Plan Comment DC Time >30 min.: No - Patient Data Vitals - Most Recent: Last Vital Signs Temp 36.4 C 11/28/20 11:07 Pulse 67 11/28/20 11:07 Resp 12 11/28/20 11:07 BP 130/70 11/28/20 11:07 Pulse Ox 95 11/28/20 11:07 Weight - Most Recent: 89.902 kg I&O - Last 24 hours: Intake & Output 11/27/20 11/28/20 11/28/20 22:59 06:59 14:59 Intake Total 560 520 Output Total 725 1040 Balance -165 -520 Lab Results - Last 24 hrs: Laboratory Results - last 24 hr 11/27/20 11/27/20 11/27/20 Range/Units 06:42 11:36 17:15 WBC (4.0-11.0) K/uL RBC (4.50-5.90) M/uL Hgb (13.0-17.0) g/dL Hct (38.0-50.0) % MCV (80.0-98.0) fL MCH (27.0-32.0) pg MCHC (31.0-37.0) g/dL RDW Std Deviation (28.0-62.0) fl RDW Coeff of Dinesh (11.0-15.0) % Plt Count (150-400) K/uL MPV (7.40-12.00) fL Neut % (Auto) (48.0-80.0) % Lymph % (Auto) (16.0-40.0) % Lamb % (Auto) (0.0-15.0) % Eos % (Auto) (0.0-7.0) % Baso % (Auto) (0.0-1.5) % Neut # (Auto) (1.4-5.7) K/uL Lymph # (Auto) (0.6-2.4) K/uL Lamb # (Auto) (0.0-0.8) K/uL Eos # (Auto) (0.0-0.7) K/uL Baso # (Auto) (0.0-0.1) K/uL Nucleated RBC % /100WBC Nucleated RBCs # K/uL Sodium (136-148) mmol/L Potassium (3.5-5.1) mmol/L Chloride (98-107) mmol/L Carbon Dioxide (21.0-32.0) mmol/L BUN (7.0-18.0) mg/dL Creatinine (0.8-1.3) mg/dL Est Cr Clr Drug Dosing mL/min Estimated GFR (MDRD) ml/min Glucose (74-106) mg/dL POC Glucose 115 H 190 H 150 H (60-110) mg/dL Calcium (8.5-10.1) mg/dL 11/28/20 11/28/20 11/28/20 Range/Units 05:22 05:22 06:43 WBC 7.24 (4.0-11.0) K/uL RBC 4.23 L (4.50-5.90) M/uL Hgb 11.8 L (13.0-17.0) g/dL Hct 36.3 L (38.0-50.0) % MCV 85.8 (80.0-98.0) fL MCH 27.9 (27.0-32.0) pg MCHC 32.5 (31.0-37.0) g/dL RDW Std Deviation 45.1 (28.0-62.0) fl RDW Coeff of Dinesh 14 (11.0-15.0) % Plt Count 426 H (150-400) K/uL MPV 9.10 (7.40-12.00) fL Neut % (Auto) 67.6 (48.0-80.0) % Lymph % (Auto) 19.8 (16.0-40.0) % Lamb % (Auto) 8.7 (0.0-15.0) % Eos % (Auto) 3.6 (0.0-7.0) % Baso % (Auto) 0.3 (0.0-1.5) % Neut # (Auto) 4.9 (1.4-5.7) K/uL Lymph # (Auto) 1.4 (0.6-2.4) K/uL Lamb # (Auto) 0.6 (0.0-0.8) K/uL Eos # (Auto) 0.3 (0.0-0.7) K/uL Baso # (Auto) 0.0 (0.0-0.1) K/uL Nucleated RBC % 0.0 /100WBC Nucleated RBCs # 0 K/uL Sodium 139 (136-148) mmol/L Potassium 4.0 (3.5-5.1) mmol/L Chloride 103 (98-107) mmol/L Carbon Dioxide 26.9 (21.0-32.0) mmol/L BUN 12 (7.0-18.0) mg/dL Creatinine 1.1 (0.8-1.3) mg/dL Est Cr Clr Drug Dosing 80.81 mL/min Estimated GFR (MDRD) > 60.0 ml/min Glucose 128 H (74-106) mg/dL POC Glucose 123 H (60-110) mg/dL Calcium 8.5 (8.5-10.1) mg/dL 11/28/20 Range/Units 11:18 WBC (4.0-11.0) K/uL RBC (4.50-5.90) M/uL Hgb (13.0-17.0) g/dL Hct (38.0-50.0) % MCV (80.0-98.0) fL MCH (27.0-32.0) pg MCHC (31.0-37.0) g/dL RDW Std Deviation (28.0-62.0) fl RDW Coeff of Dinesh (11.0-15.0) % Plt Count (150-400) K/uL MPV (7.40-12.00) fL Neut % (Auto) (48.0-80.0) % Lymph % (Auto) (16.0-40.0) % Lamb % (Auto) (0.0-15.0) % Eos % (Auto) (0.0-7.0) % Baso % (Auto) (0.0-1.5) % Neut # (Auto) (1.4-5.7) K/uL Lymph # (Auto) (0.6-2.4) K/uL Lamb # (Auto) (0.0-0.8) K/uL Eos # (Auto) (0.0-0.7) K/uL Baso # (Auto) (0.0-0.1) K/uL Nucleated RBC % /100WBC Nucleated RBCs # K/uL Sodium (136-148) mmol/L Potassium (3.5-5.1) mmol/L Chloride (98-107) mmol/L Carbon Dioxide (21.0-32.0) mmol/L BUN (7.0-18.0) mg/dL Creatinine (0.8-1.3) mg/dL Est Cr Clr Drug Dosing mL/min Estimated GFR (MDRD) ml/min Glucose (74-106) mg/dL POC Glucose 158 H (60-110) mg/dL Calcium (8.5-10.1) mg/dL NATALIE Results - Last 24 hrs: Microbiology 11/25/20 14:23 Wound Culture - Final Foot, Right Staphylococcus Aureus Streptococcus Group A 11/25/20 15:00 Aerobic Blood Culture - Preliminary Blood - Venous - Lab Draw NO GROWTH AFTER 2 DAYS Anaerobic Blood Culture - Preliminary NO GROWTH AFTER 2 DAYS 11/25/20 14:42 Aerobic Blood Culture - Preliminary Blood - Venous NO GROWTH AFTER 2 DAYS Anaerobic Blood Culture - Final Med Orders - Current: Current Medications Acetaminophen (Tylenol) 650 mg PO Q4H PRN PRN Reason: Pain (Mild 1-3)/fever Dextrose/Water (Dextrose 50% In Water) 50 ml IV ASDIRECTED PRN PRN Reason: Hypoglycemia Enoxaparin Sodium (Lovenox) 40 mg SUBCUT Q24H [facility] Last Admin: 11/27/20 18:06 Dose: 40 mg Documented by: Glucagon (Glucagen) 1 mg IM ASDIRECTED PRN PRN Reason: Hypoglycemia Sodium Chloride (Normal Saline) 1,000 mls @ 999 mls/hr IV ASDIRECTED [facility] Last Admin: 11/25/20 14:31 Dose: 999 mls/hr Documented by: Piperacillin Sod/Tazobactam (Sod 3.375 gm/ Sodium Chloride) 50 mls @ 100 mls/hr IV Q6H [facility] Last Admin: 11/28/20 08:22 Dose: 100 mls/hr Documented by: Vancomycin HCl 1.25 gm/ Sodium (Chloride) 250 mls @ 166.667 mls/hr IV Q12H [facility] Last Admin: 11/28/20 00:15 Dose: 166.667 mls/hr Documented by: Insulin Aspart (Novolog) 0 unit SUBCUT TIDAC [facility]; Protocol Last Admin: 11/28/20 07:49 Dose: Not Given Documented by: Insulin Detemir (Levemir) 10 unit SUBCUT BEDTIME [facility] Last Admin: 11/27/20 20:30 Dose: 10 unit Documented by: Ondansetron HCl (Zofran) 4 mg IVPUSH Q4H PRN PRN Reason: Nausea Pantoprazole Sodium (Protonix) 40 mg PO DAILY [facility] Last Admin: 11/28/20 08:22 Dose: 40 mg Documented by: Vancomycin HCl (Pharmacy To Dose - Vancomycin) 1 dose .XX ASDIRECTED [facility] Discontinued Medications Al Hydroxide/Mg Hydroxide 15 (ml/ Lidocaine HCl 5 ml) 0 ml PO ONETIME ONE Stop: 11/27/20 13:22 Last Admin: 11/27/20 14:04 Dose: 1 each Documented by: Vancomycin HCl 1.5 gm/ Sodium (Chloride) 500 mls @ 333 mls/hr IV Q24H [facility] Last Admin: 11/25/20 16:06 Dose: 333 mls/hr Documented by: Piperacillin Sod/Tazobactam (Sod 3.375 gm/ Sodium Chloride) 50 mls @ 100 mls/hr IV ONETIME ONE Stop: 11/25/20 15:09 Last Admin: 11/25/20 14:51 Dose: 100 mls/hr Documented by: Piperacillin Sod/Tazobactam (Sod 3.375 gm/ Sodium Chloride) 50 mls @ 100 mls/hr IV Q6H [facility] Last Admin: 11/25/20 21:25 Dose: Not Given Documented by: Vancomycin HCl 1.25 gm/ Sodium (Chloride) 250 mls @ 166.667 mls/hr IV Q8H [facility] Last Admin: 11/26/20 23:42 Dose: 166.667 mls/hr Documented by: Iopamidol (Isovue Multipack-370 (76%)) 100 ml IVPUSH ONETIME ONE Stop: 11/25/20 16:02 Last Admin: 11/25/20 16:02 Dose: 100 ml Documented by: <Saran Rosales - Last Filed: 11/28/20 22:29> Discharge Summary - Hospital Course Free Text/Narrative:: I have seen and evaluated the patient. I have discussed findings and treatment plan with resident. I agree with the assessment and plan in the following note. - Referral to Home Health Primary Care Physician: PCP Not In Area - Discharge Diagnosis/Problem(s) (1) Diabetes mellitus SNOMED Code(s): 24466957 ICD Code: E11.9 - TYPE 2 DIABETES MELLITUS WITHOUT COMPLICATIONS Status: Acute (2) Diabetic foot ulcer SNOMED Code(s): 656477788 ICD Code: E11.621 - TYPE 2 DIABETES MELLITUS WITH FOOT ULCER; L97.509 - NON- PRESSURE CHRONIC ULCER OTH PRT UNSP FOOT W UNSP SEVERITY Status: Acute (3) Hx of BKA SNOMED Code(s): 258715526, 194569604 ICD Code: Z89.519 - ACQUIRED ABSENCE OF UNSPECIFIED LEG BELOW KNEE Status: Acute - Patient Summary/Data Consults: Consultations 11/25/20 18:00 Consult to Wound Care Services [CONS] Stat 11/27/20 13:24 Consult to Physician [CONS] Routine 11/28/20 11:46 Consult to Home Health [CONS] Routine 11/28/20 11:49 Consult to Case Management/Aircraft Motor Mechanic [CONS] Routine - Patient Data Vitals - Most Recent: Last Vital Signs Temp 36.4 C 11/28/20 11:07 Pulse 67 11/28/20 11:07 Resp 12 11/28/20 11:07 BP 130/70 11/28/20 11:07 Pulse Ox 95 11/28/20 11:07 I&O - Last 24 hours: Intake & Output 11/28/20 11/28/20 11/28/20 06:59 14:59 22:59 Intake Total 520 400 Output Total 1040 500 Balance -520 -100 Lab Results - Last 24 hrs: Laboratory Results - last 24 hr 11/28/20 11/28/20 11/28/20 Range/Units 05:22 05:22 06:43 WBC 7.24 (4.0-11.0) K/uL RBC 4.23 L (4.50-5.90) M/uL Hgb 11.8 L (13.0-17.0) g/dL Hct 36.3 L (38.0-50.0) % MCV 85.8 (80.0-98.0) fL MCH 27.9 (27.0-32.0) pg MCHC 32.5 (31.0-37.0) g/dL RDW Std Deviation 45.1 (28.0-62.0) fl RDW Coeff of Dinesh 14 (11.0-15.0) % Plt Count 426 H (150-400) K/uL MPV 9.10 (7.40-12.00) fL Neut % (Auto) 67.6 (48.0-80.0) % Lymph % (Auto) 19.8 (16.0-40.0) % Lamb % (Auto) 8.7 (0.0-15.0) % Eos % (Auto) 3.6 (0.0-7.0) % Baso % (Auto) 0.3 (0.0-1.5) % Neut # (Auto) 4.9 (1.4-5.7) K/uL Lymph # (Auto) 1.4 (0.6-2.4) K/uL Lamb # (Auto) 0.6 (0.0-0.8) K/uL Eos # (Auto) 0.3 (0.0-0.7) K/uL Baso # (Auto) 0.0 (0.0-0.1) K/uL Nucleated RBC % 0.0 /100WBC Nucleated RBCs # 0 K/uL Sodium 139 (136-148) mmol/L Potassium 4.0 (3.5-5.1) mmol/L Chloride 103 (98-107) mmol/L Carbon Dioxide 26.9 (21.0-32.0) mmol/L BUN 12 (7.0-18.0) mg/dL Creatinine 1.1 (0.8-1.3) mg/dL Est Cr Clr Drug Dosing 80.81 mL/min Estimated GFR (MDRD) > 60.0 ml/min Glucose 128 H (74-106) mg/dL POC Glucose 123 H (60-110) mg/dL Calcium 8.5 (8.5-10.1) mg/dL 11/28/20 Range/Units 11:18 WBC (4.0-11.0) K/uL RBC (4.50-5.90) M/uL Hgb (13.0-17.0) g/dL Hct (38.0-50.0) % MCV (80.0-98.0) fL MCH (27.0-32.0) pg MCHC (31.0-37.0) g/dL RDW Std Deviation (28.0-62.0) fl RDW Coeff of Dinesh (11.0-15.0) % Plt Count (150-400) K/uL MPV (7.40-12.00) fL Neut % (Auto) (48.0-80.0) % Lymph % (Auto) (16.0-40.0) % Lamb % (Auto) (0.0-15.0) % Eos % (Auto) (0.0-7.0) % Baso % (Auto) (0.0-1.5) % Neut # (Auto) (1.4-5.7) K/uL Lymph # (Auto) (0.6-2.4) K/uL Lamb # (Auto) (0.0-0.8) K/uL Eos # (Auto) (0.0-0.7) K/uL Baso # (Auto) (0.0-0.1) K/uL Nucleated RBC % /100WBC Nucleated RBCs # K/uL Sodium (136-148) mmol/L Potassium (3.5-5.1) mmol/L Chloride (98-107) mmol/L Carbon Dioxide (21.0-32.0) mmol/L BUN (7.0-18.0) mg/dL Creatinine (0.8-1.3) mg/dL Est Cr Clr Drug Dosing mL/min Estimated GFR (MDRD) ml/min Glucose (74-106) mg/dL POC Glucose 158 H (60-110) mg/dL Calcium (8.5-10.1) mg/dL NATALIE Results - Last 24 hrs: Microbiology 11/25/20 15:00 Aerobic Blood Culture - Preliminary Blood - Venous - Lab Draw NO GROWTH AFTER 3 DAYS Anaerobic Blood Culture - Preliminary NO GROWTH AFTER 3 DAYS 11/25/20 14:42 Aerobic Blood Culture - Preliminary Blood - Venous NO GROWTH AFTER 3 DAYS Anaerobic Blood Culture - Final 11/25/20 14:23 Wound Culture - Final Foot, Right Staphylococcus Aureus Streptococcus Group A Med Orders - Current: Current Medications Discontinued Medications Acetaminophen (Tylenol) 650 mg PO Q4H PRN PRN Reason: Pain (Mild 1-3)/fever Al Hydroxide/Mg Hydroxide 15 (ml/ Lidocaine HCl 5 ml) 0 ml PO ONETIME ONE Stop: 11/27/20 13:22 Last Admin: 11/27/20 14:04 Dose: 1 each Documented by: Dextrose/Water (Dextrose 50% In Water) 50 ml IV ASDIRECTED PRN PRN Reason: Hypoglycemia Enoxaparin Sodium (Lovenox) 40 mg SUBCUT Q24H [facility] Last Admin: 11/27/20 18:06 Dose: 40 mg Documented by: Glucagon (Glucagen) 1 mg IM ASDIRECTED PRN PRN Reason: Hypoglycemia Sodium Chloride (Normal Saline) 1,000 mls @ 999 mls/hr IV ASDIRECTED [facility] Last Admin: 11/25/20 14:31 Dose: 999 mls/hr Documented by: Vancomycin HCl 1.5 gm/ Sodium (Chloride) 500 mls @ 333 mls/hr IV Q24H [facility] Last Admin: 11/25/20 16:06 Dose: 333 mls/hr Documented by: Piperacillin Sod/Tazobactam (Sod 3.375 gm/ Sodium Chloride) 50 mls @ 100 mls/hr IV ONETIME ONE Stop: 11/25/20 15:09 Last Admin: 11/25/20 14:51 Dose: 100 mls/hr Documented by: Piperacillin Sod/Tazobactam (Sod 3.375 gm/ Sodium Chloride) 50 mls @ 100 mls/hr IV Q6H [facility] Last Admin: 11/25/20 21:25 Dose: Not Given Documented by: Vancomycin HCl 1.25 gm/ Sodium (Chloride) 250 mls @ 166.667 mls/hr IV Q8H [facility] Last Admin: 11/26/20 23:42 Dose: 166.667 mls/hr Documented by: Piperacillin Sod/Tazobactam (Sod 3.375 gm/ Sodium Chloride) 50 mls @ 100 mls/hr IV Q6H [facility] Last Admin: 11/28/20 14:00 Dose: Not Given Documented by: Vancomycin HCl 1.25 gm/ Sodium (Chloride) 250 mls @ 166.667 mls/hr IV Q12H [facility] Last Admin: 11/28/20 11:43 Dose: 166.667 mls/hr Documented by: Insulin Aspart (Novolog) 0 unit SUBCUT TIDAC [facility]; Protocol Last Admin: 11/28/20 11:48 Dose: 1 unit Documented by: Insulin Detemir (Levemir) 10 unit SUBCUT BEDTIME [facility] Last Admin: 11/27/20 20:30 Dose: 10 unit Documented by: Iopamidol (Isovue Multipack-370 (76%)) 100 ml IVPUSH ONETIME ONE Stop: 11/25/20 16:02 Last Admin: 11/25/20 16:02 Dose: 100 ml Documented by: Ondansetron HCl (Zofran) 4 mg IVPUSH Q4H PRN PRN Reason: Nausea Pantoprazole Sodium (Protonix) 40 mg PO DAILY [facility] Last Admin: 11/28/20 08:22 Dose: 40 mg Documented by: Vancomycin HCl (Pharmacy To Dose - Vancomycin) 1 dose .XX ASDIRECTED [facility]
== END 2020-11-28 15:00 | disposition home health service (06) ==
LOC: MW.ED 13:51 → MW.MS 18:02
PROVIDERS: ADMIT Internal Medicine; ATTEND Internal Medicine
DX: E11.621 Type 2 diabetes mellitus with foot ulcer (principal); L97.519 Non-pressure chronic ulcer of other part of right foot with unspecified severity; R26.2 Difficulty in walking, not elsewhere classified; L03.115 Cellulitis of right lower limb; E11.65 Type 2 diabetes mellitus with hyperglycemia; Z89.512 Acquired absence of left leg below knee; Z79.4 Long term (current) use of insulin; Z79.899 Other long term (current) drug therapy; Z20.822 Contact with and (suspected) exposure to COVID-19
CPT/HCPCS: 0240U; 36415; 73701; 80048; 80053; 80202; 82962; 83036; 83605; 83735; 84100; 85025; 85652; 86140; 87040; 87070; 87077; 87186; 96365; 96367; 99285; A9270; J1650; J1815; J2543; J3370; J7030; J7040; J7050; Q9967

== ENCOUNTER 2021-04-12 09:20 | Emergency (ER) | payer MEDICAID ==
[2021-04-12] MEDS ORDERED: Bacitracin Oint 1 GM U/D Packet TOP ONE (09:35)
--- NOTE | 2021-04-12 09:39 | EDM.PDOC ---
ED HPI GENERAL MEDICAL PROBLEM - General Chief Complaint: General Stated Complaint: MEDICAL CLEARANCE Time Seen by Provider: 04/12/21 09:29 - History of Present Illness INITIAL COMMENTS - FREE TEXT/NARRATIVE: HISTORY AND PHYSICAL: History of present illness: This is a 56-year-old gentleman with history significant for hypertension, insulin-dependent diabetes, depression, hypercholesterolemia, chronic right foot ulcer who is currently under the care of Deanna borrero practitioner next-door, who presents ER today by [facility] for medical clearance secondary to his multitude of medical problems. Patient reports that he does have a history of depression and recently started smoking methamphetamines approximately 2 to 3 weeks ago after approximately 6 months of sobriety. Patient denies any recent fevers, shakes, chills, nausea, vomiting, diarrhea, dysuria, frequency, urgency. Patient reports he has been tolerating p.o. solids and liquids well. Patient reports that he has been compliant with his medications. 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 Patient reports that he has had a right foot ulcer for several month has been doctored by his practitioner. Patient is currently on doxycycline for the foot ulcer. Patient reports that he has not had any significant improvement or change in the ulcer itself since he bears weight on it frequently. Review of systems: As per history of present illness and below otherwise all systems reviewed and n egative. Past medical history: As per history of present illness and as reviewed below otherwise noncontributory. Surgical history: As per history of present illness and as reviewed below otherwise noncontributory. Social history: No reported history of drug abuse. Family history: As per history of present illness and as reviewed below otherwise noncontributory. Physical exam: This patient was seen and evaluated during the 2019 SARS-CoV-2 novel coronavirus pandemic period. Community viral transmission is ongoing at time of this encounter and the emergency department is operating under pandemic response procedures. Constitutional: Patient is oriented to person, place, and time. Appears well- developed and well-nourished. No distress. HEENT: Moist mucous membranes Head: Normocephalic and atraumatic Eyes: Right eye exhibits no discharge. Left eye exhibits no discharge. No scleral icterus Neck: Normal range of motion. No tracheal deviation present. Cardiovascular: Normal rate and regular rhythm. Pulmonary: Effort normal, no respiratory distress. Abdominal: No distention Musculoskeletal: Normal range of motion Neurologic: Alert and oriented to person, place and time. Skin: [place], warm and dry. Psychiatric: Normal mood and affect. Behavior is normal. Judgment and thought content normal. Nursing note and vital signs have been reviewed Patient's ER physical exam is significant for a well-developed well-nourished well-appearing gentleman who appears to be no acute distress. Patient vital signs reviewed and are stable. Patient has a right plantar foot ulcer over the fifth metatarsal distally that appears to be well granulated without any evidence of acute infection at this time. There is no drainage or surrounding erythema. Wound was dressed which was removed here in the ED and will be redressed. Patient is status post left BKA Assessment and plan: This is a 56-year-old gentleman with multiple medical problems who is here for medical clearance by law enforcement. Patient will have basic labs checked in order to assure normal electrolytes, renal function and blood sugars. Patient's labs are all within normal limits. Patient is stable for discharge to [facility] with routine follow-up with his medical provider for care of his chronic foot ulcer. Patient is to continue all his medications that he takes as an outpatient. Reassessment at the time of disposition demonstrates that the patient is in no acute distress. The patient has remained stable throughout the entire ED visit and is without objective evidence for acute process requiring urgent intervention or hospitalization. The patient is stable for discharge, counseling is provided as documented above, discussed symptomatic treatment and specific conditions for return. I have spoken with the patient/caregiver and discussed todays findings, in addition to providing specific details for the plan of care. Questions are answered and there is agreement with the plan. Definitive disposition and diagnosis as appropriate pending reevaluation and review of above. Patient's labs are all within normal limits. Patient is clinically and hemodynamically stable right foot Pain Score (Numeric/FACES): 2 - Related Data Allergies Allergy/AdvReac Type Severity Reaction Status Date / Time No Known Allergies Allergy Verified 04/12/21 09:35 Home Meds: Home Meds Insulin Detemir [Levemir] 10 unit SUBCUT BEDTIME 30 Days #3 pen 11/28/20 [Rx] levoFLOXacin [Levaquin] 750 mg PO DAILY 12 Days #12 tab 11/28/20 [Rx] metroNIDAZOLE [Metronidazole] 500 mg PO Q8H 12 Days #36 tablet 11/28/20 [Rx] Past Medical History Musculoskeletal History: Reports: Amputation, Other (See Below) Other Musculoskeletal History: left foot amputation Psychiatric History: Reports: Addiction, Depression Endocrine/Metabolic History: Reports: Other (See Below) Other Endocrine/Metabolic History: Pt. unsure if he is Type I or Type II diabetic. Social & Family History - Family History Family Medical History: No Pertinent Family History - Caffeine Use Caffeine Use: Reports: Soda ED ROS GENERAL - Review of Systems Review Of Systems: See Below ED EXAM, GENERAL - Physical Exam Exam: See Below Course - Vital Signs Last Recorded V/S: Last Vital Signs Temp 97.8 F 04/12/21 10:35 Pulse 90 04/12/21 10:35 Resp 18 04/12/21 10:35 BP 149/98 H 04/12/21 10:35 Pulse Ox 98 04/12/21 10:35 - Orders/Labs/Meds Labs: Laboratory Tests 04/12/21 04/12/21 Range/Units 09:45 09:45 WBC 9.92 (4.0-11.0) K/uL RBC 4.68 (4.50-5.90) M/uL Hgb 13.5 (13.0-17.0) g/dL Hct 41.3 (38.0-50.0) % MCV 88.2 (80.0-98.0) fL MCH 28.8 (27.0-32.0) pg MCHC 32.7 (31.0-37.0) g/dL RDW Std Deviation 46.2 (28.0-62.0) fl RDW Coeff of Dinesh 14 (11.0-15.0) % Plt Count 293 (150-400) K/uL MPV 10.00 (7.40-12.00) fL Neut % (Auto) 80.8 H (48.0-80.0) % Lymph % (Auto) 13.4 L (16.0-40.0) % [place] % (Auto) 4.7 (0.0-15.0) % Eos % (Auto) 0.9 (0.0-7.0) % Baso % (Auto) 0.2 (0.0-1.5) % Neut # (Auto) 8.0 H (1.4-5.7) K/uL Lymph # (Auto) 1.3 (0.6-2.4) K/uL [place] # (Auto) 0.5 (0.0-0.8) K/uL Eos # (Auto) 0.1 (0.0-0.7) K/uL Baso # (Auto) 0.0 (0.0-0.1) K/uL Nucleated RBC % 0.0 /100WBC Nucleated RBCs # 0 K/uL Sodium 138 (136-148) mmol/L Potassium 4.0 (3.5-5.1) mmol/L Chloride 102 (98-107) mmol/L Carbon Dioxide 27.6 (21.0-32.0) mmol/L BUN 14 (7.0-18.0) mg/dL Creatinine 1.0 (0.8-1.3) mg/dL Est Cr Clr Drug Dosing 85.17 mL/min Estimated GFR (MDRD) > 60.0 ml/min Glucose 176 H (74-106) mg/dL Calcium 8.6 (8.5-10.1) mg/dL Meds: Medications Discontinued Medications Generic Name Dose Route Start Last Admin Trade Name Harlanq PRN Reason Stop Dose Admin Bacitracin 2 dose 04/12/21 09:35 04/12/21 09:52 Bacitracin Oint 1 Gm U/D Packet TOP 04/12/21 09:36 2 dose ONETIME ONE Administration Departure - Departure Time of Disposition: 10:40 Disposition: Home, Self-Care 01 Condition: Good Clinical Impression: Diabetes Qualifiers: Diabetes mellitus type: type 1 Diabetes mellitus complication status: without complication Qualified Code(s): E10.9 - Type 1 diabetes mellitus without complications Chronic foot ulcer Qualifiers: Laterality: right Non-pressure ulcer stage: unspecified non-pressure ulcer stage Qualified Code(s): L97.519 - Non-pressure chronic ulcer of other part of right foot with unspecified severity - Discharge Information Instructions: Diabetes Mellitus and Foot Care Referrals: Deanna Houser PA [Primary Care Provider] - Forms: ED Department Discharge Additional Instructions: Your seen and evaluated in the ER today secondary to your diabetes, hypertension and your chronic foot ulcer. Your blood tests were all within normal limits. Please continue your current medical plan of care. Resume all your outpatient medications. The following information is given to patients seen in the emergency department who are being discharged to home. This information is to outline your options for follow-up care. We provide all patients seen in our emergency department with a follow-up referral. The need for follow-up, as well as the timing and circumstances, are variable depending upon the specifics of your emergency department visit. If you don't have a primary care physician on staff, we will provide you with a referral. We always advise you to contact your personal physician following an emergency department visit to inform them of the circumstance of the visit and for follow-up with them and/or the need for any referrals to a consulting specialist. The emergency department will also refer you to a specialist when appropriate. This referral assures that you have the opportunity for follow-up care with a specialist. All of these measure are taken in an effort to provide you with optimal care, which includes your follow-up. Under all circumstances we always encourage you to contact your private physician who remains a resource for coordinating your care. When calling for follow-up care, please make the office aware that this follow-up is from your recent emergency room visit. If for any reason you are refused follow-up, please contact the [facility] Emergency Department at and asked to speak to the emergency department charge nurse. [facility] [address] [place] [address] [place] [address] Sepsis Event Note (ED) - Evaluation Sepsis Screening Result: No Definite Risk - Focused Exam Vital Signs: Vital Signs Temp Pulse Resp BP Pulse Ox 04/12/21 10:35 97.8 F 90 18 149/98 H 98 04/12/21 09:32 97.2 F 90 18 181/105 H 98
[2021-04-12 10:14] LABS: BLOOD UREA NITROGEN,BUN 14 mg/dL (7.0-18.0); CARBON DIOXIDE,CO2 27.6 mmol/L (21.0-32.0); CHLORIDE,CL 102 mmol/L (98-107); GLUCOSE RANDOM 176 mg/dL (74-106); SODIUM,NA 138 mmol/L (136-148)
== END 2021-04-12 10:53 | disposition home or self-care (01) ==
LOC: MW.ED 09:20
DX: E10.10 Type 1 diabetes mellitus with ketoacidosis without coma (principal); L97.519 Non-pressure chronic ulcer of other part of right foot with unspecified severity; I10 Essential (primary) hypertension
CPT/HCPCS: 36415; 80048; 85025; 99283

== ENCOUNTER 2021-06-08 09:52 | Inpatient (IN) | payer MEDICAID ==
[2021-06-08] MEDS ORDERED: Sodium Chloride 0.9% 1,000 ML IV ONE (10:23)
[2021-06-08] MEDS ORDERED: Ondansetron 4 MG/2 ML SDV IVPUSH ONE ×2 (10:28→17:48)
--- NOTE | 2021-06-08 10:28 | EDM.PDOC ---
ED HPI GENERAL MEDICAL PROBLEM - General Chief Complaint: Abdominal Pain Stated Complaint: THROWING UP BLOOD Time Seen by Provider: 06/08/21 09:57 Source of Information: Reports: Patient History Limitations: Reports: No Limitations - History of Present Illness INITIAL COMMENTS - FREE TEXT/NARRATIVE: Patient is a 56-year-old male presents today for nausea or vomiting. Patient s ays he had upset stomach since yesterday has been vomiting and this morning when he vomited he saw a small amount of blood in it. States that he also has not taken his insulin for the past day as well has been tired fatigue have abdominal cramps. Says his mouth feels very dry. Denies any blood in his stool no lightheadedness not take any blood thinners. Abdomen Pain Score (Numeric/FACES): 7 - Related Data Allergies Allergy/AdvReac Type Severity Reaction Status Date / Time No Known Allergies Allergy Verified 06/08/21 10:22 Home Meds: Home Meds Insulin Detemir [Levemir] 10 unit SUBCUT BEDTIME 30 Days #3 pen 11/28/20 [Rx] levoFLOXacin [Levaquin] 750 mg PO DAILY 12 Days #12 tab 11/28/20 [Rx] metroNIDAZOLE [Metronidazole] 500 mg PO Q8H 12 Days #36 tablet 11/28/20 [Rx] Insulin Detemir [Levemir] 10 unit SUBCUT DAILY #1 pen 04/12/21 [Rx] Past Medical History - Past Health History Medical/Surgical History: Denies Medical/Surgical History HEENT History: Reports: None Cardiovascular History: Reports: None Respiratory History: Reports: None Gastrointestinal History: Reports: None Genitourinary History: Reports: None Musculoskeletal History: Reports: Amputation, Other (See Below) Other Musculoskeletal History: left foot amputation Neurological History: Reports: None Psychiatric History: Reports: Addiction, Depression Endocrine/Metabolic History: Reports: Diabetes, Type II, Other (See Below) Other Endocrine/Metabolic History: Pt. unsure if he is Type I or Type II diabetic. Hematologic History: Reports: None Immunologic History: Reports: None Oncologic (Cancer) History: Reports: None Dermatologic History: Reports: None - Infectious Disease History Infectious Disease History: Reports: MRSA - Past Surgical History Head Surgeries/Procedures: Reports: None Social & Family History - Family History Family Medical History: No Pertinent Family History HEENT: Reports: None - Caffeine Use Caffeine Use: Reports: None - Recreational Drug Use Recreational Drug Use: Yes Recreational Drug Type: Reports: Cocaine, Heroin ED ROS GENERAL - Review of Systems Review Of Systems: See Below Constitutional: Reports: No Symptoms HEENT: Reports: No Symptoms Respiratory: Reports: No Symptoms Cardiovascular: Reports: No Symptoms Endocrine: Reports: No Symptoms GI/Abdominal: Reports: Nausea, Vomiting : Reports: No Symptoms Musculoskeletal: Reports: No Symptoms Skin: Reports: No Symptoms Neurological: Reports: No Symptoms Psychiatric: Reports: No Symptoms Hematologic/Lymphatic: Reports: No Symptoms Immunologic: Reports: No Symptoms ED EXAM, GI/ABD - Physical Exam Exam: See Below Exam Limited By: No Limitations General Appearance: Alert, WD/WN, No Apparent Distress Respiratory/Chest: No Respiratory Distress Cardiovascular: Normal Peripheral Pulses, Regular Rate, Rhythm GI/Abdominal Exam: Normal Bowel Sounds, Soft, Non-Tender Extremities: Normal Range of Motion. No: Normal Inspection (Amputation of left lower leg) Neurological: Alert, Oriented, CN II-XII Intact, Normal Cognition, Normal Gait Course - Vital Signs Last Recorded V/S: Last Vital Signs Temp 96.7 F L 06/08/21 15:28 Pulse 90 06/08/21 18:11 Resp 20 06/08/21 15:28 BP 139/67 06/08/21 18:11 Pulse Ox 94 L 06/08/21 18:11 - Orders/Labs/Meds Orders: Active Orders 24 hr Category Date Time Status Patient Status [ADT] Routine ADT 06/08/21 18:53 Ordered Guaiac [OCCULT BLOOD DIAGNOSTIC] [OP] Stat Lab 06/08/21 10:39 Ordered Dextrose 50% in Water Med 06/08/21 12:21 Active 50 ml IVPUSH ASDIRECTED PRN Glucagon,Human Recombinant [GlucaGen] Med 06/08/21 12:21 Active 1 mg IM ASDIRECTED PRN Medication Orders Dextrose/Water (50% Dextrose In Water 50 Ml Syringe) 50 ml IVPUSH ASDIRECTED PRN PRN Reason: Hypoglycemia Glucagon (Glucagon,Human Recombinant 1 Mg Vial) 1 mg IM ASDIRECTED PRN PRN Reason: Hypoglycemia Labs: Laboratory Tests 06/08/21 06/08/21 06/08/21 Range/Units 10:35 11:33 11:33 WBC 10.73 (4.0-11.0) K/uL RBC 4.28 L (4.50-5.90) M/uL Hgb 12.4 L (13.0-17.0) g/dL Hct 35.9 L (38.0-50.0) % MCV 83.9 (80.0-98.0) fL MCH 29.0 (27.0-32.0) pg MCHC 34.5 (31.0-37.0) g/dL RDW Std Deviation 40.8 (28.0-62.0) fl RDW Coeff of Dinesh 14 (11.0-15.0) % Plt Count 220 (150-400) K/uL MPV 9.80 (7.40-12.00) fL Neut % (Auto) 88.7 H (48.0-80.0) % Lymph % (Auto) 7.7 L (16.0-40.0) % Wharton % (Auto) 3.6 (0.0-15.0) % Eos % (Auto) 0.0 (0.0-7.0) % Baso % (Auto) 0.0 (0.0-1.5) % Neut # (Auto) 9.5 H (1.4-5.7) K/uL Lymph # (Auto) 0.8 (0.6-2.4) K/uL Wharton # (Auto) 0.4 (0.0-0.8) K/uL Eos # (Auto) 0.0 (0.0-0.7) K/uL Baso # (Auto) 0.0 (0.0-0.1) K/uL Nucleated RBC % 0.0 /100WBC Nucleated RBCs # 0 K/uL Sodium 139 (136-148) mmol/L Potassium 3.9 (3.5-5.1) mmol/L Chloride 103 (98-107) mmol/L Carbon Dioxide 27.9 (21.0-32.0) mmol/L BUN 23 H (7.0-18.0) mg/dL Creatinine 0.9 (0.8-1.3) mg/dL Est Cr Clr Drug Dosing 94.63 mL/min Estimated GFR (MDRD) > 60.0 ml/min Glucose 207 H (74-106) mg/dL POC Glucose 210 H (70-99) mg/dL Lactic Acid (0.4-2.0) mmol/L Calcium 8.5 (8.5-10.1) mg/dL Phosphorus 3.0 (2.6-4.7) mg/dL Magnesium 2.0 (1.8-2.4) mg/dL Total Bilirubin 0.4 (0.2-1.0) mg/dL AST 19 (15-37) IU/L ALT 48 (14-63) IU/L Alkaline Phosphatase 87 (46-116) U/L Total Protein 7.3 (6.4-8.2) g/dL Albumin 3.7 (3.4-5.0) g/dL Globulin 3.6 (2.6-4.0) g/dL Albumin/Globulin Ratio 1.0 (0.9-1.6) Lipase 16 L (73-393) U/L Urine Color Urine Appearance Urine pH (5.0-8.0) Ur Specific Winigan (1.001-1.035) Urine Protein (NEGATIVE) mg/dL Urine Glucose (UA) (NEGATIVE) mg/dL Urine Ketones (NEGATIVE) mg/dL Urine Occult Blood (NEGATIVE) Urine Nitrite (NEGATIVE) Urine Bilirubin (NEGATIVE) Urine Urobilinogen (<2.0) EU/dL Ur Leukocyte Esterase (NEGATIVE) Urine RBC (0-2/HPF) Urine WBC (0-5/HPF) Ur Epithelial Cells (NONE-FEW) Urine Bacteria (NEGATIVE) Urine Mucus (NONE-MOD) SARS-CoV-2 RNA (SKYLAR) (NEGATIVE) 06/08/21 06/08/21 06/08/21 Range/Units 11:33 12:30 13:09 WBC (4.0-11.0) K/uL RBC (4.50-5.90) M/uL Hgb (13.0-17.0) g/dL Hct (38.0-50.0) % MCV (80.0-98.0) fL MCH (27.0-32.0) pg MCHC (31.0-37.0) g/dL RDW Std Deviation (28.0-62.0) fl RDW Coeff of Dinesh (11.0-15.0) % Plt Count (150-400) K/uL MPV (7.40-12.00) fL Neut % (Auto) (48.0-80.0) % Lymph % (Auto) (16.0-40.0) % Wharton % (Auto) (0.0-15.0) % Eos % (Auto) (0.0-7.0) % Baso % (Auto) (0.0-1.5) % Neut # (Auto) (1.4-5.7) K/uL Lymph # (Auto) (0.6-2.4) K/uL Wharton # (Auto) (0.0-0.8) K/uL Eos # (Auto) (0.0-0.7) K/uL Baso # (Auto) (0.0-0.1) K/uL Nucleated RBC % /100WBC Nucleated RBCs # K/uL Sodium (136-148) mmol/L Potassium (3.5-5.1) mmol/L Chloride (98-107) mmol/L Carbon Dioxide (21.0-32.0) mmol/L BUN (7.0-18.0) mg/dL Creatinine (0.8-1.3) mg/dL Est Cr Clr Drug Dosing mL/min Estimated GFR (MDRD) ml/min Glucose (74-106) mg/dL POC Glucose 190 H (70-99) mg/dL Lactic Acid 1.1 (0.4-2.0) mmol/L Calcium (8.5-10.1) mg/dL Phosphorus (2.6-4.7) mg/dL Magnesium (1.8-2.4) mg/dL Total Bilirubin (0.2-1.0) mg/dL AST (15-37) IU/L ALT (14-63) IU/L Alkaline Phosphatase (46-116) U/L Total Protein (6.4-8.2) g/dL Albumin (3.4-5.0) g/dL Globulin (2.6-4.0) g/dL Albumin/Globulin Ratio (0.9-1.6) Lipase (73-393) U/L Urine Color YELLOW Urine Appearance CLEAR Urine pH 8.0 (5.0-8.0) Ur Specific Winigan 1.020 (1.001-1.035) Urine Protein NEGATIVE (NEGATIVE) mg/dL Urine Glucose (UA) 500 H (NEGATIVE) mg/dL Urine Ketones TRACE H (NEGATIVE) mg/dL Urine Occult Blood TRACE-INTACT H (NEGATIVE) Urine Nitrite NEGATIVE (NEGATIVE) Urine Bilirubin NEGATIVE (NEGATIVE) Urine Urobilinogen 0.2 (<2.0) EU/dL Ur Leukocyte Esterase NEGATIVE (NEGATIVE) Urine RBC 0-3 (0-2/HPF) Urine WBC 0-1 (0-5/HPF) Ur Epithelial Cells RARE (NONE-FEW) Urine Bacteria RARE (NEGATIVE) Urine Mucus LIGHT (NONE-MOD) SARS-CoV-2 RNA (SKYLAR) (NEGATIVE) 06/08/21 Range/Units 16:00 WBC (4.0-11.0) K/uL RBC (4.50-5.90) M/uL Hgb (13.0-17.0) g/dL Hct (38.0-50.0) % MCV (80.0-98.0) fL MCH (27.0-32.0) pg MCHC (31.0-37.0) g/dL RDW Std Deviation (28.0-62.0) fl RDW Coeff of Dinesh (11.0-15.0) % Plt Count (150-400) K/uL MPV (7.40-12.00) fL Neut % (Auto) (48.0-80.0) % Lymph % (Auto) (16.0-40.0) % Wharton % (Auto) (0.0-15.0) % Eos % (Auto) (0.0-7.0) % Baso % (Auto) (0.0-1.5) % Neut # (Auto) (1.4-5.7) K/uL Lymph # (Auto) (0.6-2.4) K/uL Wharton # (Auto) (0.0-0.8) K/uL Eos # (Auto) (0.0-0.7) K/uL Baso # (Auto) (0.0-0.1) K/uL Nucleated RBC % /100WBC Nucleated RBCs # K/uL Sodium (136-148) mmol/L Potassium (3.5-5.1) mmol/L Chloride (98-107) mmol/L Carbon Dioxide (21.0-32.0) mmol/L BUN (7.0-18.0) mg/dL Creatinine (0.8-1.3) mg/dL Est Cr Clr Drug Dosing mL/min Estimated GFR (MDRD) ml/min Glucose (74-106) mg/dL POC Glucose (70-99) mg/dL Lactic Acid (0.4-2.0) mmol/L Calcium (8.5-10.1) mg/dL Phosphorus (2.6-4.7) mg/dL Magnesium (1.8-2.4) mg/dL Total Bilirubin (0.2-1.0) mg/dL AST (15-37) IU/L ALT (14-63) IU/L Alkaline Phosphatase (46-116) U/L Total Protein (6.4-8.2) g/dL Albumin (3.4-5.0) g/dL Globulin (2.6-4.0) g/dL Albumin/Globulin Ratio (0.9-1.6) Lipase (73-393) U/L Urine Color Urine Appearance Urine pH (5.0-8.0) Ur Specific Winigan (1.001-1.035) Urine Protein (NEGATIVE) mg/dL Urine Glucose (UA) (NEGATIVE) mg/dL Urine Ketones (NEGATIVE) mg/dL Urine Occult Blood (NEGATIVE) Urine Nitrite (NEGATIVE) Urine Bilirubin (NEGATIVE) Urine Urobilinogen (<2.0) EU/dL Ur Leukocyte Esterase (NEGATIVE) Urine RBC (0-2/HPF) Urine WBC (0-5/HPF) Ur Epithelial Cells (NONE-FEW) Urine Bacteria (NEGATIVE) Urine Mucus (NONE-MOD) SARS-CoV-2 RNA (SKYLAR) NEGATIVE (NEGATIVE) Meds: Medications Generic Name Dose Route Start Last Admin Trade Name Fran PRN Reason Stop Dose Admin Dextrose/Water 50 ml 06/08/21 12:21 50% Dextrose In Water 50 Ml Syringe IVPUSH ASDIRECTED PRN Hypoglycemia Glucagon 1 mg 06/08/21 12:21 Glucagon,Human Recombinant 1 Mg Vial IM ASDIRECTED PRN Hypoglycemia Discontinued Medications Generic Name Dose Route Start Last Admin Trade Name Fran PRN Reason Stop Dose Admin Al Hydroxide/Mg Hydroxide 30 ml 06/08/21 10:29 06/08/21 10:40 Aluminum Hydroxide/Magnesium Hydroxide/Simethicone Susp 30 Ml Cup PO 06/08/21 10:30 30 ml ONETIME ONE Administration Sodium Chloride 1,000 mls @ 999 mls/hr 06/08/21 10:23 06/08/21 10:29 Normal Saline IV 06/08/21 11:23 999 mls/hr .BOLUS ONE Administration Insulin Human Regular 5 unit 06/08/21 12:21 06/08/21 12:38 Insulin Regular, Human 100 Units/Ml 10 Ml Vial SUBCUT 06/08/21 12:22 5 units ONETIME ONE Administration Protocol Iopamidol 100 ml 06/08/21 18:11 06/08/21 18:11 Iopamidol 755 Mg/Ml 500 Ml Multipack Bottle IVPUSH 06/08/21 18:12 100 ml ONETIME ONE Administration Ondansetron HCl 4 mg 06/08/21 10:28 06/08/21 10:40 Ondansetron 4 Mg/2 Ml Sdv IVPUSH 06/08/21 10:29 4 mg ONETIME ONE Administration Ondansetron HCl 4 mg 06/08/21 17:48 06/08/21 18:48 Ondansetron 4 Mg/2 Ml Sdv IVPUSH 06/08/21 17:49 4 mg ONETIME ONE Administration Ondansetron HCl Confirm 06/08/21 17:50 06/08/21 18:47 Ondansetron 4 Mg/2 Ml Sdv Administered 06/08/21 17:51 Not Given Dose 4 mg .ROUTE .[facility] ONE - Re-Assessments/Exams Free Text/Narrative Re-Assessment/Exam: 06/08/21 13:02 Exam nausea better patient tolerating p.o. looks better however still complain of dizziness he has some medial rectus muscle paralysis. Will obtain a CT scan and reassess. 06/08/21 15:14 CT is normal. Patient pupils are reactive to light in both eyes. Patient this patient has a isolated medial rectus muscle palsy. Patient will be discharged to follow-up with neurology as outpatient. 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 Recommend to manage medically. Dual antiplatelets and will continue work-up with echo and MRI. Patient will be admitted to the hospital for further care. Departure - Departure Time of Disposition: 15:14 Disposition: Admitted As Inpatient 66 Condition: Good Clinical Impression: Third cranial nerve palsy - Discharge Information *PRESCRIPTION DRUG MONITORING PROGRAM REVIEWED*: Not Applicable *COPY OF PRESCRIPTION DRUG MONITORING REPORT IN PATIENT MAX: Not Applicable Instructions: Strabismus, Adult Referrals: Marquita Bose MD [Physician] - Forms: ED Department Discharge Additional Instructions: The following information is given to patients seen in the emergency department who are being discharged to home. This information is to outline your options for follow-up care. We provide all patients seen in our emergency department with a follow-up referral. The need for follow-up, as well as the timing and circumstances, are variable depending upon the specifics of your emergency department visit. If you don't have a primary care physician on staff, we will provide you with a referral. We always advise you to contact your personal physician following an emergency department visit to inform them of the circumstance of the visit and for follow-up with them and/or the need for any referrals to a consulting specialist. The emergency department will also refer you to a specialist when appropriate. This referral assures that you have the opportunity for follow-up care with a specialist. All of these measure are taken in an effort to provide you with optimal care, which includes your follow-up. Under all circumstances we always encourage you to contact your private physician who remains a resource for coordinating your care. When calling for follow-up care, please make the office aware that this follow-up is from your recent emergency room visit. If for any reason you are refused follow-up, please contact the [facility] Emergency Department at and asked to speak to the emergency department charge nurse. Please follow up with your primary care physician. If you do not have a primary care physician, see below: [facility] [address] [place] [id number] [facility] [address] [place] [id number] You were seen today for nausea and vomiting. We were able to control this with some Zofran I also gave you IV fluids hydrate you up. On exam you had a medial rectus muscle palsy and your right I cannot look left. The other functions of the 3rd cranial nerve are intact. This is isolated injury of the nerve. We did a CT scan did not show any strokes. We recommend you follow-up with neurology as an outpatient for further care. Critical Care Note - Critical Care Note Total Time (mins): 55 Comments: Critical Care Procedure Note Authorized and Performed by: Dr. Gómez Total critical care time: Approximately Due to a high probability of clinically significant, life threatening deterioration, the patient required my highest level of preparedness to intervene emergently and I personally spent this critical care time directly and personally managing the patient. This critical care time included obtaining a history; examining the patient; pulse oximetry; ordering and review of studies; arranging urgent treatment with development of a management plan; evaluation of patient's response to treatment; frequent reassessment; and, discussions with other providers. This critical care time was performed to assess and manage the high probability of imminent, life-threatening deterioration that could result in multi-organ failure. It was exclusive of separately billable procedures and treating other patients and teaching time. Sepsis Event Note (ED) - Evaluation Sepsis Screening Result: No Definite Risk - Focused Exam Vital Signs: Vital Signs Temp Pulse Resp BP Pulse Ox 06/08/21 18:11 90 139/67 94 L 06/08/21 17:00 88 154/91 H 93 L 06/08/21 16:00 90 143/89 H 95 06/08/21 15:28 96.7 F L 89 20 141/93 H 99 06/08/21 15:00 99 148/92 H 95 06/08/21 14:00 96 150/103 H 95 06/08/21 13:00 97 95 H 111/62 06/08/21 12:00 91 150/81 H 95 06/08/21 11:00 91 138/74 94 L 06/08/21 10:00 100 139/84 95 06/08/21 09:58 97.5 F 98 20 139/84 97 - My Orders Last 24 Hours: My Active Orders 06/08/21 10:39 Guaiac [OCCULT BLOOD DIAGNOSTIC] [OP] Stat 06/08/21 12:21 Dextrose 50% in Water 50 ml IVPUSH ASDIRECTED PRN Glucagon,Human Recombinant [GlucaGen] 1 mg IM ASDIRECTED PRN 06/08/21 18:53 Patient Status [ADT] Routine - Assessment/Plan Last 24 Hours: My Active Orders 06/08/21 10:39 Guaiac [OCCULT BLOOD DIAGNOSTIC] [OP] Stat 06/08/21 12:21 Dextrose 50% in Water 50 ml IVPUSH ASDIRECTED PRN Glucagon,Human Recombinant [GlucaGen] 1 mg IM ASDIRECTED PRN 06/08/21 18:53 Patient Status [ADT] Routine Plan: Patient is a thin 56-year-old male presents today for nausea vomiting. Patient has some vomiting with blood earlier today. Could be also be a Fina-Simon tear from his repeated vomiting. Will obtain CBC lab rule out DKA and also do a stool guaiac.
[2021-06-08] MEDS ORDERED: Aluminum Hydroxide/Magnesium Hydroxide/Simethicone Susp 30 ML Cup PO ONE (10:29)
--- NOTE | 2021-06-08 11:41 | CR ---
INDICATION: Vomiting. Possible DKA. TECHNIQUE: Upright portable AP image of the chest. COMPARISON: 12/21/2018. FINDINGS: Interval left base atelectasis or scarring with new mild left diaphragmatic elevation. Right lung and pleural space is clear. Heart size and pulmonary vasculature within normal limits. No significant bony abnormality. IMPRESSION: Interval left lung base atelectasis or scarring with new mild left diaphragmatic elevation. Dictated by Sergo Odell MD @ 06/08/2021 11:39:[address] Sergo Odell @ Jun 08 2021 11:39AM
[2021-06-08 12:09] LABS: BLOOD UREA NITROGEN,BUN 23 mg/dL (7.0-18.0); CARBON DIOXIDE,CO2 27.9 mmol/L (21.0-32.0); CHLORIDE,CL 103 mmol/L (98-107); GLUCOSE RANDOM 207 mg/dL (74-106); LIPASE 16 U/L (73-393); POTASSIUM,K 3.9 mmol/L (3.5-5.1); SODIUM,NA 139 mmol/L (136-148)
[2021-06-08] MEDS ORDERED: Insulin Regular, Human 100 Units/ML 10 ML Vial SUBCUT ONE (12:21)
[2021-06-08] MEDS ORDERED: 50% Dextrose in Water 50 ML Syringe IVPUSH PRN (12:21)
[2021-06-08] MEDS ORDERED: Glucagon,Human Recombinant 1 MG Vial IM PRN (12:21)
--- NOTE | 2021-06-08 14:49 | CT ---
INDICATION: Medial rectus palsy. COMPARISON: None. TECHNIQUE: CT head without intravenous contrast; coronal and sagittal reformats. FINDINGS: No intracranial hemorrhage . No mass lesions. No evidence of shift of the midline structures. The calvarium is unremarkable. The ventricular system, the subarachnoid cisterns and the cerebral sulci are unremarkable stopped. IMPRESSION: Negative unenhanced head CT. Please note that all CT scans at this facility use dose modulation, iterative reconstruction, and/or weight-based dosing when appropriate to reduce radiation dose to as low as reasonably achievable. Dictated by Kyung Escamilla MD @ 06/08/2021 2:47:[address] Kyung Escamilla @ Jun 08 2021 2:47PM
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
--- NOTE | 2021-06-08 17:41 | PCM.SN.2 ---
- Free Text/Narrative Note: Called be CABLE WEAVER to insert PIV after multiple attempts by staff (including ER physician) failed to successfully establish access. PIV placed in the right upper arm #18 GA x 1.88" inserted in a sterile fashion times one attempt. Secured with tape and occlusive dressing. Report given to RN.
[2021-06-08] MEDS ORDERED: Ondansetron 4 MG/2 ML SDV ONE (17:50)
[2021-06-08] MEDS ORDERED: Iopamidol 755 MG/ML 500 ML Multipack Bottle IVPUSH ONE (18:11)
--- NOTE | 2021-06-08 18:39 | CT ---
DATE: 06/08/2021 CLINICAL HISTORY: Patient with medial rectus muscle palsy. TECHNIQUE: Standard helical CT image acquisition through the head and neck was performed after intravenous contrast bolus enhancement. Multiplanar reconstructed images were performed and interpreted. COMPARISON: CT same day. 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 There is intracranial atherosclerosis in the pre-PICA segment of the left vertebral artery with a moderate stenosis. Widely patent dominant right vertebral artery and basilar artery. The origins of the great vessels from the aortic arch are patent. The common carotid arteries are patent There is no stenosis at the origin of the right internal carotid artery. There is no stenosis at the origin of the left internal carotid artery. The rest of the cervical segments of the internal carotid arteries are patent up to their intracranial segments. The intracranial segments of the internal carotid arteries are patent. The middle cerebral arteries are normal without aneurysm or proximal occlusion identified. The anterior cerebral arteries are normal without aneurysm or proximal occlusion identified. The anterior communicating artery is well visualized and appears normal. The basilar artery is normal without aneurysm or occlusion. The posterior cerebral arteries are normal without aneurysm or proximal occlusion. The visualized lung apices are unremarkable The thyroid gland is unremarkable. The soft tissues of the neck are unremarkable. There are degenerative changes in the cervical spine. IMPRESSION: 1. 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 In addition, there is intracranial atherosclerosis in the pre-PICA segment of the left vertebral artery with a moderate stenosis. 2. widely patent dominant right vertebral artery, basilar artery and bilateral posterior cerebral arteries. 3. Patent rest of the cervical and proximal intracranial vasculature. Please note that all CT scans at this facility use dose modulation, iterative reconstruction, and/or weight-based dosing when appropriate to reduce radiation dose to as low as reasonably achievable. Dictated by La Hathaway MD @ 06/08/2021 8:36:[address] La Hathaway @ Jun 08 2021 8:36PM
--- NOTE | 2021-06-08 23:37 | PCM.HP.2 ---
H&P History of Present Illness - General Date of Service: 06/08/21 Admit Problem/Dx: Admission Diagnosis/Problem Admission Diagnosis/Problem CVA, Cerebrovascular accident - History of Present Illness Initial Comments - Free Text/Narative: 56 yo male with pmh of diabetes, diabetic neuropathy, left BKA, who [facility] ED from [facility] with complaints nausea, vomiting, dizziness and right lazy eye. CT scan of the head showed no acute pathology. 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 Abdomen Pain Score (Numeric/FACES): 7 - Related Data Allergies/Adverse Reactions: Allergies Allergy/AdvReac Type Severity Reaction Status Date / Time No Known Allergies Allergy Verified 06/08/21 10:22 Home Medications: Home Meds Insulin Detemir [Levemir] 10 unit SUBCUT BEDTIME 30 Days #3 pen 11/28/20 [Rx] levoFLOXacin [Levaquin] 750 mg PO DAILY 12 Days #12 tab 11/28/20 [Rx] metroNIDAZOLE [Metronidazole] 500 mg PO Q8H 12 Days #36 tablet 11/28/20 [Rx] Insulin Detemir [Levemir] 10 unit SUBCUT DAILY #1 pen 04/12/21 [Rx] Past Medical History - Past Health History Medical/Surgical History: Denies Medical/Surgical History HEENT History: Reports: None Cardiovascular History: Reports: None Respiratory History: Reports: Asthma, Other (See Below) Gastrointestinal History: Reports: None Genitourinary History: Reports: None Musculoskeletal History: Reports: Amputation, Other (See Below) Other Musculoskeletal History: Left Below the knee amputation Neurological History: Reports: None Psychiatric History: Reports: Addiction, Depression Endocrine/Metabolic History: Reports: Diabetes, Type II, Other (See Below) Other Endocrine/Metabolic History: Pt. unsure if he is Type I or Type II diabetic. Hematologic History: Reports: None Immunologic History: Reports: None Oncologic (Cancer) History: Reports: None Dermatologic History: Reports: None - Infectious Disease History Infectious Disease History: Reports: MRSA - Past Surgical History Head Surgeries/Procedures: Reports: None Other HEENT Surgeries/Procedures: Poor dentition - no teeth Other Respiratory Surgeries/Procedures: Childhood asthma Musculoskeletal Surgical History: Reports: Amputation Social & Family History - Family History Family Medical History: No Pertinent Family History HEENT: Reports: None - Tobacco Use Tobacco Use Status *Q: Never Tobacco User Second Hand Smoke Exposure: Yes - Caffeine Use Caffeine Use: Reports: None - Recreational Drug Use Recreational Drug Use: Yes Drug Use in Last 12 Months: No Recreational Drug Type: Reports: Methamphetamine Recreational Drug Use Frequency: Not Used In Over 6 Months Recreational Drug Last Use: 1 year ago H&P Review of Systems - Review of Systems: Review Of Systems: Comprehensive ROS is negative, except as noted in HPI. Exam - Exam Exam: See Below - Vital Signs Vital Signs: Last Vital Signs Temp 35.9 C L 06/08/21 15:28 Pulse 97 06/08/21 20:44 Resp 16 06/08/21 20:44 BP 148/89 H 06/08/21 20:44 Pulse Ox 97 06/08/21 20:44 Weight: 88.995 kg - Exam General: Alert, Oriented HEENT: Other (right eye does not lood to the left) Cardiovascular: Regular Rate, Regular Rhythm GI/Abdominal Exam: Normal Bowel Sounds, Soft, Non-Tender Extremities: Non-Tender, No Pedal Edema Skin: Warm, Dry, Intact - Patient Data Lab Results Last 24 hrs: Laboratory Results - last 24 hr 06/08/21 06/08/21 06/08/21 Range/Units 10:35 11:33 11:33 WBC 10.73 (4.0-11.0) K/uL RBC 4.28 L (4.50-5.90) M/uL Hgb 12.4 L (13.0-17.0) g/dL Hct 35.9 L (38.0-50.0) % MCV 83.9 (80.0-98.0) fL MCH 29.0 (27.0-32.0) pg MCHC 34.5 (31.0-37.0) g/dL RDW Std Deviation 40.8 (28.0-62.0) fl RDW Coeff of Dinesh 14 (11.0-15.0) % Plt Count 220 (150-400) K/uL MPV 9.80 (7.40-12.00) fL Neut % (Auto) 88.7 H (48.0-80.0) % Lymph % (Auto) 7.7 L (16.0-40.0) % [place] % (Auto) 3.6 (0.0-15.0) % Eos % (Auto) 0.0 (0.0-7.0) % Baso % (Auto) 0.0 (0.0-1.5) % Neut # (Auto) 9.5 H (1.4-5.7) K/uL Lymph # (Auto) 0.8 (0.6-2.4) K/uL [place] # (Auto) 0.4 (0.0-0.8) K/uL Eos # (Auto) 0.0 (0.0-0.7) K/uL Baso # (Auto) 0.0 (0.0-0.1) K/uL Nucleated RBC % 0.0 /100WBC Nucleated RBCs # 0 K/uL Sodium 139 (136-148) mmol/L Potassium 3.9 (3.5-5.1) mmol/L Chloride 103 (98-107) mmol/L Carbon Dioxide 27.9 (21.0-32.0) mmol/L BUN 23 H (7.0-18.0) mg/dL Creatinine 0.9 (0.8-1.3) mg/dL Est Cr Clr Drug Dosing 94.63 mL/min Estimated GFR (MDRD) > 60.0 ml/min Glucose 207 H (74-106) mg/dL POC Glucose 210 H (70-99) mg/dL Lactic Acid (0.4-2.0) mmol/L Calcium 8.5 (8.5-10.1) mg/dL Phosphorus 3.0 (2.6-4.7) mg/dL Magnesium 2.0 (1.8-2.4) mg/dL Total Bilirubin 0.4 (0.2-1.0) mg/dL AST 19 (15-37) IU/L ALT 48 (14-63) IU/L Alkaline Phosphatase 87 (46-116) U/L Total Protein 7.3 (6.4-8.2) g/dL Albumin 3.7 (3.4-5.0) g/dL Globulin 3.6 (2.6-4.0) g/dL Albumin/Globulin Ratio 1.0 (0.9-1.6) Lipase 16 L (73-393) U/L Urine Color Urine Appearance Urine pH (5.0-8.0) Ur Specific [place] (1.001-1.035) Urine Protein (NEGATIVE) mg/dL Urine Glucose (UA) (NEGATIVE) mg/dL Urine Ketones (NEGATIVE) mg/dL Urine Occult Blood (NEGATIVE) Urine Nitrite (NEGATIVE) Urine Bilirubin (NEGATIVE) Urine Urobilinogen (<2.0) EU/dL Ur Leukocyte Esterase (NEGATIVE) Urine RBC (0-2/HPF) Urine WBC (0-5/HPF) Ur Epithelial Cells (NONE-FEW) Urine Bacteria (NEGATIVE) Urine Mucus (NONE-MOD) SARS-CoV-2 RNA (SKYLAR) (NEGATIVE) 06/08/21 06/08/21 06/08/21 Range/Units 11:33 12:30 13:09 WBC (4.0-11.0) K/uL RBC (4.50-5.90) M/uL Hgb (13.0-17.0) g/dL Hct (38.0-50.0) % MCV (80.0-98.0) fL MCH (27.0-32.0) pg MCHC (31.0-37.0) g/dL RDW Std Deviation (28.0-62.0) fl RDW Coeff of Dinesh (11.0-15.0) % Plt Count (150-400) K/uL MPV (7.40-12.00) fL Neut % (Auto) (48.0-80.0) % Lymph % (Auto) (16.0-40.0) % [place] % (Auto) (0.0-15.0) % Eos % (Auto) (0.0-7.0) % Baso % (Auto) (0.0-1.5) % Neut # (Auto) (1.4-5.7) K/uL Lymph # (Auto) (0.6-2.4) K/uL [place] # (Auto) (0.0-0.8) K/uL Eos # (Auto) (0.0-0.7) K/uL Baso # (Auto) (0.0-0.1) K/uL Nucleated RBC % /100WBC Nucleated RBCs # K/uL Sodium (136-148) mmol/L Potassium (3.5-5.1) mmol/L Chloride (98-107) mmol/L Carbon Dioxide (21.0-32.0) mmol/L BUN (7.0-18.0) mg/dL Creatinine (0.8-1.3) mg/dL Est Cr Clr Drug Dosing mL/min Estimated GFR (MDRD) ml/min Glucose (74-106) mg/dL POC Glucose 190 H (70-99) mg/dL Lactic Acid 1.1 (0.4-2.0) mmol/L Calcium (8.5-10.1) mg/dL Phosphorus (2.6-4.7) mg/dL Magnesium (1.8-2.4) mg/dL Total Bilirubin (0.2-1.0) mg/dL AST (15-37) IU/L ALT (14-63) IU/L Alkaline Phosphatase (46-116) U/L Total Protein (6.4-8.2) g/dL Albumin (3.4-5.0) g/dL Globulin (2.6-4.0) g/dL Albumin/Globulin Ratio (0.9-1.6) Lipase (73-393) U/L Urine Color YELLOW Urine Appearance CLEAR Urine pH 8.0 (5.0-8.0) Ur Specific [place] 1.020 (1.001-1.035) Urine Protein NEGATIVE (NEGATIVE) mg/dL Urine Glucose (UA) 500 H (NEGATIVE) mg/dL Urine Ketones TRACE H (NEGATIVE) mg/dL Urine Occult Blood TRACE-INTACT H (NEGATIVE) Urine Nitrite NEGATIVE (NEGATIVE) Urine Bilirubin NEGATIVE (NEGATIVE) Urine Urobilinogen 0.2 (<2.0) EU/dL Ur Leukocyte Esterase NEGATIVE (NEGATIVE) Urine RBC 0-3 (0-2/HPF) Urine WBC 0-1 (0-5/HPF) Ur Epithelial Cells RARE (NONE-FEW) Urine Bacteria RARE (NEGATIVE) Urine Mucus LIGHT (NONE-MOD) SARS-CoV-2 RNA (SKYLAR) (NEGATIVE) 06/08/21 06/08/21 Range/Units 16:00 20:41 WBC (4.0-11.0) K/uL RBC (4.50-5.90) M/uL Hgb (13.0-17.0) g/dL Hct (38.0-50.0) % MCV (80.0-98.0) fL MCH (27.0-32.0) pg MCHC (31.0-37.0) g/dL RDW Std Deviation (28.0-62.0) fl RDW Coeff of Dinesh (11.0-15.0) % Plt Count (150-400) K/uL MPV (7.40-12.00) fL Neut % (Auto) (48.0-80.0) % Lymph % (Auto) (16.0-40.0) % [place] % (Auto) (0.0-15.0) % Eos % (Auto) (0.0-7.0) % Baso % (Auto) (0.0-1.5) % Neut # (Auto) (1.4-5.7) K/uL Lymph # (Auto) (0.6-2.4) K/uL [place] # (Auto) (0.0-0.8) K/uL Eos # (Auto) (0.0-0.7) K/uL Baso # (Auto) (0.0-0.1) K/uL Nucleated RBC % /100WBC Nucleated RBCs # K/uL Sodium (136-148) mmol/L Potassium (3.5-5.1) mmol/L Chloride (98-107) mmol/L Carbon Dioxide (21.0-32.0) mmol/L BUN (7.0-18.0) mg/dL Creatinine (0.8-1.3) mg/dL Est Cr Clr Drug Dosing mL/min Estimated GFR (MDRD) ml/min Glucose (74-106) mg/dL POC Glucose 162 H (70-99) mg/dL Lactic Acid (0.4-2.0) mmol/L Calcium (8.5-10.1) mg/dL Phosphorus (2.6-4.7) mg/dL Magnesium (1.8-2.4) mg/dL Total Bilirubin (0.2-1.0) mg/dL AST (15-37) IU/L ALT (14-63) IU/L Alkaline Phosphatase (46-116) U/L Total Protein (6.4-8.2) g/dL Albumin (3.4-5.0) g/dL Globulin (2.6-4.0) g/dL Albumin/Globulin Ratio (0.9-1.6) Lipase (73-393) U/L Urine Color Urine Appearance Urine pH (5.0-8.0) Ur Specific [place] (1.001-1.035) Urine Protein (NEGATIVE) mg/dL Urine Glucose (UA) (NEGATIVE) mg/dL Urine Ketones (NEGATIVE) mg/dL Urine Occult Blood (NEGATIVE) Urine Nitrite (NEGATIVE) Urine Bilirubin (NEGATIVE) Urine Urobilinogen (<2.0) EU/dL Ur Leukocyte Esterase (NEGATIVE) Urine RBC (0-2/HPF) Urine WBC (0-5/HPF) Ur Epithelial Cells (NONE-FEW) Urine Bacteria (NEGATIVE) Urine Mucus (NONE-MOD) SARS-CoV-2 RNA (SKYLAR) NEGATIVE (NEGATIVE) Result Diagrams: 06/09/21 06:07 06/09/21 06:07 Sepsis Event Note - Evaluation Sepsis Screening Result: No Definite Risk - Focused Exam Vital Signs: Vital Signs Temp Pulse Resp BP Pulse Ox 06/08/21 20:44 97 16 148/89 H 97 06/08/21 18:11 90 139/67 94 L 06/08/21 17:00 88 154/91 H 93 L 06/08/21 16:00 90 143/89 H 95 06/08/21 15:28 35.9 C L 89 20 141/93 H 99 06/08/21 15:00 99 148/92 H 95 06/08/21 14:00 96 150/103 H 95 06/08/21 13:00 97 95 H 111/62 06/08/21 12:00 91 150/81 H 95 Problem List Initiated/Reviewed/Updated: Yes Orders Last 24hrs: Active Orders 24 hr Category Date Time Status Patient Status [ADT] Routine ADT 06/08/21 18:53 Active Accu Check [Blood Glucose Check, Bedside] [RC] TIDAC Care 06/08/21 22:57 Active Nurse Communication: Isolation [RC] ASDIRECTED Care 06/08/21 22:57 Active Nurse Communication: Isolation [RC] ASDIRECTED Care 06/08/21 22:57 Active [employer] Diet [DIET] Diet 06/09/21 Breakfast Active Guaiac [OCCULT BLOOD DIAGNOSTIC] [OP] Stat Lab 06/08/21 10:39 Ordered Dextrose 50% in Water Med 06/08/21 12:21 Active 50 ml IVPUSH ASDIRECTED PRN Glucagon,Human Recombinant [GlucaGen] Med 06/08/21 12:21 Active 1 mg IM ASDIRECTED PRN Isolation [COMM] Routine Oth 06/08/21 22:57 Active Medication Orders Dextrose/Water (50% Dextrose In Water 50 Ml Syringe) 50 ml IVPUSH ASDIRECTED PRN PRN Reason: Hypoglycemia Glucagon (Glucagon,Human Recombinant 1 Mg Vial) 1 mg IM ASDIRECTED PRN PRN Reason: Hypoglycemia Assessment/Plan Comment:: 56 yo male admitted for stroke. We will treat with aspirin, plavix and statin. PT consulted, Will monitor on telemetry.
[2021-06-08] MEDS ORDERED: Ondansetron 4 MG/2 ML SDV IVPUSH PRN (23:46)
[2021-06-08] MEDS ORDERED: Acetaminophen 325 MG Tab PO PRN (23:46)
[2021-06-09] MEDS: Insulin Detemir 100 Units/ML 3 ML Pen SUBCUT SCH ×2 (01:06→21:27)
[2021-06-09 06:53] LABS: BLOOD UREA NITROGEN,BUN 23 mg/dL (7.0-18.0); CARBON DIOXIDE,CO2 28.2 mmol/L (21.0-32.0); CHLORIDE,CL 101 mmol/L (98-107); GLUCOSE RANDOM 115 mg/dL (74-106); POTASSIUM,K 3.9 mmol/L (3.5-5.1); SODIUM,NA 137 mmol/L (136-148)
[2021-06-09] MEDS: Insulin Aspart 100 Units/ML 3 ML Pen SUBCUT SCH ×3 (07:48→18:25)
[2021-06-09] MEDS: Clopidogrel 75 MG Tab PO SCH (08:19)
[2021-06-09] MEDS: Aspirin 81 MG Tab.Chew PO SCH (08:19)
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
--- NOTE | 2021-06-09 17:02 | CT ---
Indication: Patient with possible stroke yesterday. 24 hour repeat. Comparison: 06/08/2021. Technique: Multiple sequential axial images from the foramen magnum to the vertex were obtained without IV contrast. Findings: No evidence of mass effect, midline shift, or extra-axial fluid collection. No evidence of space-occupying lesion or intracranial hemorrhage. No evidence of cortical-based area of infarction. Ventricles and sulci are appropriate for patient age. Basal cisterns are patent. Visualized portions of the orbits, paranasal sinuses, and mastoid air cells are unremarkable. Impression: No CT evidence of an acute intracranial process. Please note that all CT scans at this facility use dose modulation, iterative reconstruction, and/or weight-based dosing when appropriate to reduce radiation dose to as low as reasonably achievable. Dictated by Francisco Ag MD @ 06/09/2021 4:58:28 PM (Electronically Signed)
[2021-06-09] MEDS ORDERED: atorvaSTATin 40 MG Tab PO SCH (21:00)
[2021-06-10] MEDS: Insulin Aspart 100 Units/ML 3 ML Pen SUBCUT SCH ×2 (06:33→12:34)
[2021-06-10 06:51] LABS: BLOOD UREA NITROGEN,BUN 27 mg/dL (7.0-18.0); CARBON DIOXIDE,CO2 27.3 mmol/L (21.0-32.0); CHLORIDE,CL 102 mmol/L (98-107); GLUCOSE RANDOM 122 mg/dL (74-106); POTASSIUM,K 3.9 mmol/L (3.5-5.1); SODIUM,NA 137 mmol/L (136-148)
[2021-06-10] MEDS: Clopidogrel 75 MG Tab PO SCH (08:42)
[2021-06-10] MEDS: Aspirin 81 MG Tab.Chew PO SCH (08:42)
--- NOTE | 2021-06-10 15:27 | PCM.DCSUM1 ---
Discharge Summary - Hospital Course Diagnosis: Stroke: No - Discharge Data Discharge Disposition: DC/Tfer to Court of Law En Condition: Good - Referral to Home Health Primary Care Physician: PCP None - Patient Summary/Data Consults: Consultations 06/08/21 23:47 PT Evaluation and Treatment [CONS] Routine - Patient Instructions Diet: Diabetic Diet Activity: As Tolerated Showering/Bathing: May Shower Wound/Incision Care: Keep Operative Site/Wound Site Clean and Dry Notify Provider of: Fever, Increased Pain, Swelling and Redness, Drainage, Nausea and/or Vomiting - Discharge Plan *PRESCRIPTION DRUG MONITORING PROGRAM REVIEWED*: Not Applicable *COPY OF PRESCRIPTION DRUG MONITORING REPORT IN PATIENT MAX: Not Applicable Prescriptions/Med Rec: Aspirin 81 mg PO DAILY #30 tab.chew atorvaSTATin [Lipitor] 80 mg PO BEDTIME #60 tablet Clopidogrel [Plavix] 75 mg PO DAILY #30 tablet Home Medications: Home Meds Insulin Detemir [Levemir] 10 unit SUBCUT BEDTIME 30 Days #3 pen 11/28/20 [Rx] Aspirin 81 mg PO DAILY #30 tab.chew 06/10/21 [Rx] Clopidogrel [Plavix] 75 mg PO DAILY #30 tablet 06/10/21 [Rx] FLUoxetine HCl [Fluoxetine HCl] 40 mg PO DAILY 06/10/21 [History] Losartan [Cozaar] 100 mg PO DAILY 06/10/21 [History] amLODIPine [Norvasc] 10 mg PO DAILY 06/10/21 [History] atorvaSTATin [Lipitor] 80 mg PO BEDTIME #60 tablet 06/10/21 [Rx] Oxygen Therapy Mode: Room Air Patient Handouts: Stroke Prevention, [id number], Ischemic Stroke, [id number], Strabismus, Adult Forms: ED Department Discharge Referrals: Marquita Bose MD [Physician] - Deanna Houser PA [Physician [employer]] - - Patient Data Vitals - Most Recent: Last Vital Signs Temp 36.3 C 06/10/21 07:35 Pulse 68 06/10/21 07:35 Resp 17 06/10/21 07:35 BP 115/80 06/10/21 07:35 Pulse Ox 96 06/10/21 07:35 Weight - Most Recent: 88.995 kg I&O - Last 24 hours: Intake & Output 06/10/21 06/10/21 06/10/21 06:59 14:59 22:59 Intake Total 500 Output Total 500 Balance 0 Lab Results - Last 24 hrs: Laboratory Results - last 24 hr 06/09/21 06/09/21 06/10/21 Range/Units 17:12 21:26 05:30 WBC 8.33 (4.0-11.0) K/uL RBC 4.40 L (4.50-5.90) M/uL Hgb 12.9 L (13.0-17.0) g/dL Hct 37.6 L (38.0-50.0) % MCV 85.5 (80.0-98.0) fL MCH 29.3 (27.0-32.0) pg MCHC 34.3 (31.0-37.0) g/dL RDW Std Deviation 42.6 (28.0-62.0) fl RDW Coeff of Dinesh 14 (11.0-15.0) % Plt Count 262 (150-400) K/uL MPV 10.30 (7.40-12.00) fL Neut % (Auto) 55.8 (48.0-80.0) % Lymph % (Auto) 33.6 (16.0-40.0) % [place] % (Auto) 9.1 (0.0-15.0) % Eos % (Auto) 1.3 (0.0-7.0) % Baso % (Auto) 0.2 (0.0-1.5) % Neut # (Auto) 4.6 (1.4-5.7) K/uL Lymph # (Auto) 2.8 H (0.6-2.4) K/uL [place] # (Auto) 0.8 (0.0-0.8) K/uL Eos # (Auto) 0.1 (0.0-0.7) K/uL Baso # (Auto) 0.0 (0.0-0.1) K/uL Nucleated RBC % 0.0 /100WBC Nucleated RBCs # 0 K/uL Sodium (136-148) mmol/L Potassium (3.5-5.1) mmol/L Chloride (98-107) mmol/L Carbon Dioxide (21.0-32.0) mmol/L BUN (7.0-18.0) mg/dL Creatinine (0.8-1.3) mg/dL Est Cr Clr Drug Dosing mL/min Estimated GFR (MDRD) ml/min Glucose (74-106) mg/dL POC Glucose 189 H 175 H (70-99) mg/dL Calcium (8.5-10.1) mg/dL Triglycerides (0-200) mg/dL Cholesterol (50-200) mg/dL LDL Cholesterol, Calc (60-180) mg/dL VLDL Cholesterol (5-55) mg/dL HDL Cholesterol (40-60) mg/dL Cholesterol/HDL Ratio (3.3-6.0) TSH, Ultra Sensitive (0.36-3.74) uIU/mL 06/10/21 06/10/21 06/10/21 Range/Units 05:30 05:30 06:20 WBC (4.0-11.0) K/uL RBC (4.50-5.90) M/uL Hgb (13.0-17.0) g/dL Hct (38.0-50.0) % MCV (80.0-98.0) fL MCH (27.0-32.0) pg MCHC (31.0-37.0) g/dL RDW Std Deviation (28.0-62.0) fl RDW Coeff of Dinesh (11.0-15.0) % Plt Count (150-400) K/uL MPV (7.40-12.00) fL Neut % (Auto) (48.0-80.0) % Lymph % (Auto) (16.0-40.0) % [place] % (Auto) (0.0-15.0) % Eos % (Auto) (0.0-7.0) % Baso % (Auto) (0.0-1.5) % Neut # (Auto) (1.4-5.7) K/uL Lymph # (Auto) (0.6-2.4) K/uL [place] # (Auto) (0.0-0.8) K/uL Eos # (Auto) (0.0-0.7) K/uL Baso # (Auto) (0.0-0.1) K/uL Nucleated RBC % /100WBC Nucleated RBCs # K/uL Sodium 137 (136-148) mmol/L Potassium 3.9 (3.5-5.1) mmol/L Chloride 102 (98-107) mmol/L Carbon Dioxide 27.3 (21.0-32.0) mmol/L BUN 27 H (7.0-18.0) mg/dL Creatinine 0.9 (0.8-1.3) mg/dL Est Cr Clr Drug Dosing 94.63 mL/min Estimated GFR (MDRD) > 60.0 ml/min Glucose 122 H (74-106) mg/dL POC Glucose 127 H (70-99) mg/dL Calcium 8.3 L (8.5-10.1) mg/dL Triglycerides 90 (0-200) mg/dL Cholesterol 102 (50-200) mg/dL LDL Cholesterol, Calc 48 L (60-180) mg/dL VLDL Cholesterol 18 (5-55) mg/dL HDL Cholesterol 36 L (40-60) mg/dL Cholesterol/HDL Ratio 2.8 L (3.3-6.0) TSH, Ultra Sensitive 2.42 (0.36-3.74) uIU/mL 06/10/21 Range/Units 11:42 WBC (4.0-11.0) K/uL RBC (4.50-5.90) M/uL Hgb (13.0-17.0) g/dL Hct (38.0-50.0) % MCV (80.0-98.0) fL MCH (27.0-32.0) pg MCHC (31.0-37.0) g/dL RDW Std Deviation (28.0-62.0) fl RDW Coeff of Dinesh (11.0-15.0) % Plt Count (150-400) K/uL MPV (7.40-12.00) fL Neut % (Auto) (48.0-80.0) % Lymph % (Auto) (16.0-40.0) % [place] % (Auto) (0.0-15.0) % Eos % (Auto) (0.0-7.0) % Baso % (Auto) (0.0-1.5) % Neut # (Auto) (1.4-5.7) K/uL Lymph # (Auto) (0.6-2.4) K/uL [place] # (Auto) (0.0-0.8) K/uL Eos # (Auto) (0.0-0.7) K/uL Baso # (Auto) (0.0-0.1) K/uL Nucleated RBC % /100WBC Nucleated RBCs # K/uL Sodium (136-148) mmol/L Potassium (3.5-5.1) mmol/L Chloride (98-107) mmol/L Carbon Dioxide (21.0-32.0) mmol/L BUN (7.0-18.0) mg/dL Creatinine (0.8-1.3) mg/dL Est Cr Clr Drug Dosing mL/min Estimated GFR (MDRD) ml/min Glucose (74-106) mg/dL POC Glucose 148 H (70-99) mg/dL Calcium (8.5-10.1) mg/dL Triglycerides (0-200) mg/dL Cholesterol (50-200) mg/dL LDL Cholesterol, Calc (60-180) mg/dL VLDL Cholesterol (5-55) mg/dL HDL Cholesterol (40-60) mg/dL Cholesterol/HDL Ratio (3.3-6.0) TSH, Ultra Sensitive (0.36-3.74) uIU/mL Med Orders - Current: Current Medications Acetaminophen (Acetaminophen 325 Mg Tab) 650 mg PO Q4H PRN PRN Reason: Pain (Mild 1-3)/fever Aspirin (Aspirin 81 Mg Tab.Chew) 81 mg PO DAILY [facility] [place] Last Admin: 06/10/21 08:42 Dose: 81 mg Documented by: Atorvastatin Calcium (Atorvastatin 40 Mg Tab) 80 mg PO BEDTIME [facility] [place] Last Admin: 06/09/21 21:27 Dose: 80 mg Documented by: Clopidogrel Bisulfate (Clopidogrel 75 Mg Tab) 75 mg PO DAILY [facility] [place] Last Admin: 06/10/21 08:42 Dose: 75 mg Documented by: Dextrose/Water (50% Dextrose In Water 50 Ml Syringe) 50 ml IVPUSH ASDIRECTED PRN PRN Reason: Hypoglycemia Glucagon (Glucagon,Human Recombinant 1 Mg Vial) 1 mg IM ASDIRECTED PRN PRN Reason: Hypoglycemia Insulin Aspart (Insulin Aspart 100 Units/Ml 3 Ml Pen) 0 unit SUBCUT TIDAC [facility] [place]; Protocol Last Admin: 06/10/21 12:34 Dose: Not Given Documented by: Insulin Detemir (Insulin Detemir 100 Units/Ml 3 Ml Pen) 10 unit SUBCUT BEDTIME [facility] [place] Last Admin: 06/09/21 21:27 Dose: 10 units Documented by: Ondansetron HCl (Ondansetron 4 Mg/2 Ml Sdv) 4 mg IVPUSH Q4H PRN PRN Reason: Nausea Discontinued Medications Al Hydroxide/Mg Hydroxide (Aluminum Hydroxide/Magnesium Hydroxide/Simethicone Susp 30 Ml Cup) 30 ml PO ONETIME ONE Stop: 06/08/21 10:30 Last Admin: 06/08/21 10:40 Dose: 30 ml Documented by: Sodium Chloride (Normal Saline) 1,000 mls @ 999 mls/hr IV .BOLUS ONE Stop: 06/08/21 11:23 Last Admin: 06/08/21 10:29 Dose: 999 mls/hr Documented by: Insulin Human Regular (Insulin Regular, Human 100 Units/Ml 10 Ml Vial) 5 unit SUBCUT ONETIME ONE; Protocol Stop: 06/08/21 12:22 Last Admin: 06/08/21 12:38 Dose: 5 units Documented by: Iopamidol (Iopamidol 755 Mg/Ml 500 Ml Multipack Bottle) 100 ml IVPUSH ONETIME ONE Stop: 06/08/21 18:12 Last Admin: 06/08/21 18:11 Dose: 100 ml Documented by: Ondansetron HCl (Ondansetron 4 Mg/2 Ml Sdv) 4 mg IVPUSH ONETIME ONE Stop: 06/08/21 10:29 Last Admin: 06/08/21 10:40 Dose: 4 mg Documented by: Ondansetron HCl (Ondansetron 4 Mg/2 Ml Sdv) 4 mg IVPUSH ONETIME ONE Stop: 06/08/21 17:49 Last Admin: 06/08/21 18:48 Dose: 4 mg Documented by: Ondansetron HCl (Ondansetron 4 Mg/2 Ml Sdv) Confirm Administered Dose 4 mg .ROUTE .STK-MED ONE Stop: 06/08/21 17:51 Last Admin: 06/08/21 18:47 Dose: Not Given Documented by:
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
== END 2021-06-10 16:00 | DRG 66 ==
LOC: MW.ED 09:52 → MW.MS 18:53
PROVIDERS: ADMIT Internal Medicine; ATTEND Internal Medicine
DX: I63.9 Cerebral infarction, unspecified (principal); H49.00 Third [oculomotor] nerve palsy, unspecified eye; E11.42 Type 2 diabetes mellitus with diabetic polyneuropathy; F32.9 Major depressive disorder, single episode, unspecified; J45.909 Unspecified asthma, uncomplicated; I65.02 Occlusion and stenosis of left vertebral artery; I10 Essential (primary) hypertension; H53.2 Diplopia; H55.00 Unspecified nystagmus; Z20.822 Contact with and (suspected) exposure to COVID-19; Z79.4 Long term (current) use of insulin; Z89.512 Acquired absence of left leg below knee
CPT/HCPCS: 36410; 36415; 70450; 70450-26; 70496; 70496-26; 70498; 70498-26; 71045; 71045-26; 72170; 72170-26; 80048; 80053; 80061; 81001; 82947; 83605; 83690; 83735; 84100; 84443; 85025; 96374; 96376; 97162-GP; 99291; A9270-GY; J1815-GY; J2405; J7030; Q9967; U0002

== ENCOUNTER 2022-08-16 23:51 | Emergency (ER) | payer MEDICAID, OTHER ==
[2022-08-17] MEDS ORDERED: Glucagon,Human Recombinant 1 MG Vial IM PRN (00:13)
[2022-08-17] MEDS ORDERED: Sodium Chloride 0.9% 1,000 ML IV ONE (00:13)
[2022-08-17] MEDS ORDERED: Sodium Chloride 0.9% 2.5 ML Syringe FLUSH PRN (00:13)
[2022-08-17] MEDS ORDERED: Sodium Chloride 0.9% 10 ML Syringe FLUSH PRN (00:13)
[2022-08-17] MEDS ORDERED: metFORMIN 500 MG Tab PO ONE (00:13)
[2022-08-17] MEDS ORDERED: Insulin Regular, Human 100 Units/ML 10 ML Vial IVPUSH ONE (00:13)
[2022-08-17] MEDS ORDERED: 50% Dextrose in Water 50 ML Syringe IVPUSH PRN (00:13)
[2022-08-17 00:57] LABS: POTASSIUM,K 4.2 mmol/L (3.5-5.1)
[2022-08-17] MEDS ORDERED: Sodium Chloride 0.9% 1,000 ML IV STA (01:16)
[2022-08-17] MEDS ORDERED: cefTRIAXone 1 GM in Sodium Chloride 0.9% 50 ML IV ONE (01:55)
[2022-08-17] MEDS ORDERED: Cefdinir 300 MG Cap PO STA (02:13)
[2022-08-17] MEDS ORDERED: cefTRIAXone 1 GM Vial ONE (02:17)
[2022-08-17] MEDS ORDERED: cefTRIAXone 1 GM Vial IM ONE (02:28)
== END 2022-08-17 02:30 ==
LOC: MW.ED 23:51
DX: N39.0 Urinary tract infection, site not specified (principal); E13.9 Other specified diabetes mellitus without complications; J45.909 Unspecified asthma, uncomplicated; Z89.512 Acquired absence of left leg below knee; Z79.4 Long term (current) use of insulin; Z79.82 Long term (current) use of aspirin; Z79.899 Other long term (current) drug therapy; Z91.14 Patient's other noncompliance with medication regimen; Z79.02 Long term (current) use of antithrombotics/antiplatelets
CPT/HCPCS: 36415; 80053; 81001; 82947; 85025; 87086; 87088; 87186; 96372; 99283; A9270; J0696; J7030; 87147; J1815-GY

== ENCOUNTER 2024-02-03 12:50 | Emergency (ER) | payer MEDICAID, OTHER | END 2024-02-03 13:37 | disposition home or self-care (01) | LOC: MW.ED 12:50 | DX: Z76.0 Encounter for issue of repeat prescription; Z91.148 Patient's other noncompliance with medication regimen for other reason; Z79.4 Long term (current) use of insulin; Z79.82 Long term (current) use of aspirin; Z79.899 Other long term (current) drug therapy; E11.9 Type 2 diabetes mellitus without complications | CPT/HCPCS: 82947; 99283 ==